=== PATIENT | female | born 1965 | race Caucasian/White ===

== ENCOUNTER → 2018-05-10 14:01 | Outpatient (CLI) | payer OTHER, MEDICAID, SELFPAY ==
--- NOTE | 2018-05-10 16:00 | PM.TREADMILL ---
Cardiac Stress Test Report Referral & Results Date Patient Seen: 05/10/18 Time Patient Seen: 16:00 Indication: Edema Rest ECG: Unremarkable Procedure Note: Today following both written and verbal informed consent, the patient was exercised according to a standard William protocol. The patient exercised for a total of 6 min 40 sec achieving a maximum heart rate of 128. Patient's maximum systolic blood pressure was 154. This was an estimated 7.0 MET's. There are no ST-T segment changes Normal heart rate blood pressure response the patient did failed meet the heart rate target Functional aerobic impairment rated-10% sedentary scale or better than average Impression: No evidence of ischemia. Better than average exercise capacity. Somewhat blunted heart rate response. Please note: Actual ECG tracings can be found in the PACS system.
== END ==
PROVIDERS: PCP Physician Assistant; Visit Provider Physician Assistant
DX: R60.0 Localized edema (principal)
CPT/HCPCS: 93016; 93017; 93018

== ENCOUNTER → 2018-09-14 10:42 | Outpatient (CLI) | payer OTHER, MEDICAID, SELFPAY ==
--- NOTE | 2018-09-14 | DI.MG.S_ITS ---
BILATERAL DIGITAL SCREENING MAMMOGRAM 3D/2D WITH CAD: 09/14/2018 CLINICAL: Routine screening. Comparison is made to exams dated: 07/28/2017 mammogram, 07/20/2016 mammogram - [facility], and 06/26/2014 mammogram - [facility]. The tissue of both breasts is predominantly fatty. Current study was also evaluated with a Computer Aided Detection (CAD) system. No significant masses, calcifications, or other findings are seen in either breast. There has been no significant interval change. IMPRESSION: NEGATIVE There is no mammographic evidence of malignancy. A 1 year screening mammogram is recommended. This exam was interpreted at Station ID: [id number]. NOTE: For mammograms, a report in lay terms will be sent to the patient. Approximately 15% of breast malignancies will not be visualized mammographically. In the management of a palpable breast mass, a negative mammogram must not discourage biopsy of a clinically suspicious lesion. Electronically Signed By: Shelley childers/bob:09/14/2018 16:40:12 letter sent: Normal Exam ACR BI-RADS Category 1: Negative [id number]
== END ==
PROVIDERS: PCP Family Medicine; Visit Provider Family Medicine
DX: Z12.31 Encounter for screening mammogram for malignant neoplasm of breast (principal)
CPT/HCPCS: 77063; 77067

== ENCOUNTER 2019-05-01 16:05 | Emergency (ER) | payer OTHER, MEDICAID, SELFPAY ==
[2019-05-01 16:07] VITALS: BP 123/79; PULSE 87; RESP 18; TEMP 37; O2SAT 99; BMI 29.2
--- NOTE | 2019-05-01 16:12 | DI.RAD.S_ITS ---
PROCEDURE: XR CHEST 2V INDICATIONS: Chest pain with breath TECHNIQUE: 2 views of the chest were acquired. COMPARISON: [facility], , CHEST 2 VIEW, 12/30/2011, 10:50. FINDINGS: Surgical changes and devices: Spine fixation hardware is stable.. Lungs and pleura: Lungs are clear. No pleural effusions or pneumothorax. Mediastinum: Mediastinal contours are normal. Heart size is normal. Bones and chest wall: No suspicious bony abnormalities. Soft tissues appear unremarkable. IMPRESSION: No acute cardiopulmonary disease process. Dictated by: Negrita Velázquez MD, PhD on 05/01/2019 at 16:50 Approved by: Negrita Velázquez MD, PhD on 05/01/2019 at 16:51
[2019-05-01 17:13] VITALS: BP 125/77; PULSE 72; RESP 19; O2SAT 96
--- NOTE | 2019-05-01 18:13 | ED.CHESTPAIN ---
HPI - Chest Pain General Chief Complaint: Chest Pain Stated Complaint: SHORT PAINS UNDER RIBS BREATHING COLD Time Seen by Provider: 05/01/19 18:06 Source: patient and family Mode of arrival: ambulatory Limitations: no limitations History of Present Illness HPI narrative: 54-year-old female non smoker with the history of HIV presents with the chief complaint of sharp and stabbing right anterior chest pain which is worse with palpation, moving and deep breath. She has had no fever chills and denies any shortness of breath. She is not dizzy nor weak or lightheaded. Her viral load is undetectable and CD4 counts have been normal. She was recently seen by her provider in had an ultrasound of her right upper quadrant given this pain which showed normal gallbladder and liver but saw a possible pleural effusion. Patient was sent here for further evaluation. MD complaint: chest pain Onset (ago): day(s) Duration: intermittent Pain location: right chest Severity: mild Quality: sharp Pain radiation: none Relieving factors: rest Exacerbating factors: inspiration, palpation and movement Treatments prior to arrival chest pain: none Related Data Home Medications Medication Instructions Recorded Confirmed acyclovir [Zovirax] 400 mg PO BID #0 12/10/12 05/01/19 loratadine 10 mg PO DAILY #0 12/10/12 05/01/19 atorvastatin [Lipitor] 20 mg PO DAILY 05/01/19 05/01/19 diclofenac sodium 1 applic TOPICAL DIRECTED 05/01/19 05/01/19 dolutegravir [Tivicay] 50 mg PO QPM 05/01/19 05/01/19 emtricitabine-tenofovir alafen 1 tab PO QPM 05/01/19 05/01/19 [Descovy] fluoxetine 20 mg PO DAILY 05/01/19 05/01/19 fluticasone propionate [Flonase 1 spray INTRANASAL DAILY 05/01/19 05/01/19 Allergy Relief] trazodone 25 mg PO BEDTIME 05/01/19 05/01/19 Allergies Allergy/AdvReac Type Severity Reaction Status Date / Time codeine [CODEINE] Allergy Severe ANAPHYLAXIS, Verified 05/01/19 16:07 VOMITING Review of Systems Constitutional Denies chills, Denies fever(s), Denies lethargy and Denies weakness Eyes Denies change in vision, Denies eye discharge, Denies irritation and Denies loss of vision ENT Ears, Nose, Mouth, and Throat: Denies change in voice, Denies neck pain and Denies sore throat Cardiovascular Reports chest pain, Denies irregular heart rhythm, Denies lightheadedness, Denies palpitations, Denies dyspnea, Denies dyspnea on exertion and Denies orthopnea Respiratory Denies cough, Denies dyspnea, Denies dyspnea on exertion and Denies wheezing Gastrointestinal Gastrointestinal: Denies abdominal pain, Denies change in bowel habits, Denies diarrhea, Denies nausea and Denies vomiting Genitourinary Denies hematuria, Denies flank pain, Denies urinary incontinence and Denies urinary urgency Musculoskeletal Denies neck pain Integumentary/Breasts Denies pruritus, Denies erythema, Denies rash and Denies wounds Neurologic Denies confusion, Denies loss of vision and Denies weakness Psychiatric Denies anxiety, Denies confusion, Denies depression, Denies homicidal ideation and Denies suicidal ideation Endocrine Denies palpitations Hematologic/Lymphatic Denies easy bruising Allergic/Immunologic Denies wheezing [facility] Social History Smoking Status: Never smoker Social History Smoking Status: Never smoker Exam Narrative Exam Narrative: GENERAL: 54-year-old female appears stated age, well appearing and in no obvious distress HEAD: Atraumatic. Normocephalic. No temporal or scalp tenderness. EYES: Pupils equal round and reactive. Extraocular motions intact. No scleral icterus. No injection or drainage. ENT: Nose without bleeding, purulent drainage or septal hematoma. Throat without erythema, tonsillar hypertrophy or exudate. Uvula midline. Airway patent. NECK: Trachea midline. No JVD or lymphadenopathy. Supple, nontender, no meningeal signs. CARDIOVASCULAR: Regular rate and rhythm without murmurs, gallops, or rubs. Reproducible sharp and stabbing right rib pain RESPIRATORY: Clear to auscultation. Breath sounds equal bilaterally. No wheezes, rales, or rhonchi. GASTROINTESTINAL: Abdomen soft, non-tender, nondistended. No hepato-splenomegaly, or palpable masses. No guarding. EXTREMITIES: No clubbing, cyanosis, or edema. No joint tenderness, effusion, or edema noted. BACK: Nontender without deformity or crepitance. No flank tenderness. NEURO: AOx3. SKIN: No rash or erythema. Initial Vital Signs Initial Vital Signs: Vital Signs Temperature 98.6 F 05/01/19 16:07 Pulse Rate 87 05/01/19 16:07 Respiratory Rate 18 05/01/19 16:07 Blood Pressure 123/79 05/01/19 16:07 Pulse Oximetry 99 05/01/19 16:07 Scores HEART Score Heart Score history: Slightly Suspicious Heart Score EKG: Normal Heart Score Age: 45-64 years old Heart Score risk factors: 1-2 risk factors Heart Score troponin: < or = to normal limit Heart Score Total: 2 PERC Score Age greater than or equal to 50 years: Yes Heart rate greater than or equal to 100 bpm: No Room Air O2 Sat less than 95%: No Unilateral leg swelling: No Recent trauma or surgery: No Hemoptysis: No Prior PE or DVT: No Hormone Use: No Total PERC Score: 1 Wells' Criteria for PE Clinical signs and symptoms of DVT: No PE is #1 Dx or equally likely: No Heart rate > 100: No Immobilization at least 3 days or surg in previous 4 weeks: No History of PE or DVT: No Hemoptysis: No Malignancy w/Treatment within 6 months or palliative: No Wells' PE Score total: 0 Course Orders Ordered: Discontinued Medications Sodium Chloride (Normal Saline 0.9%) 1,000 mls @ 150 mls/hr IV CONT RYLAND Last Infusion: 05/01/19 20:16 Dose: 150 mls/hr Admin: 05/01/19 18:58 Dose: 150 mls/hr Vital Signs - 8 hr 05/01/19 16:07 05/01/19 17:13 Temperature 98.6 F Pulse Rate 87 72 Respiratory Rate 18 19 Blood Pressure 123/79 Blood Pressure [Left Arm] 125/77 Pulse Oximetry 99 96 MDM - Chest Pain Lab Data Result diagrams: 05/01/19 16:40 05/01/19 19:04 Lab Results 05/01/19 05/01/19 05/01/19 Range/Units 16:40 16:40 19:04 WBC 6.1 (4.5-11.0) X10^3/uL RBC 4.29 (4.0-5.2) X10^6/uL Hgb 15.0 (12.0-16.0) g/dL Hct 43.5 (36-46) % MCV 101.5 H (80-100) fL MCH 34.9 H (26-34) PG MCHC 34.4 (30-36) % RDW 12.1 (11.6-14.8) % Plt Count 260 (150-400) X10^3/uL Neut % (Auto) 61.9 (50-75) % Lymph % (Auto) 26.1 (25-40) % [place] % (Auto) 9.2 (3-14) % Eos % (Auto) 2.2 (2-4) % Baso % (Auto) 0.6 (0-2) % Neut # (Auto) 3700 (4104-6815) /uL Lymph # (Auto) 1600 (4529-7881) /uL [place] # (Auto) 600 (0-900) /uL Eos # (Auto) 100 (0-450) /uL Baso # (Auto) 0 (0-100) /uL D-Dimer < 200 (<230) ng/mL Sodium 137 (137-145) mmol/L Potassium 4.0 (3.4-5.1) mmol/L Chloride 105 (98-107) mmol/L Carbon Dioxide 24 (22-32) mmol/L BUN 20 H (7-17) mg/dL Creatinine 1.40 H (0.52-1.04) mg/dL Estimated GFR 38.9 L (>60) mL/min BUN/Creatinine Ratio 14.3 (6-22) Glucose 91 (70-100) mg/dL Calcium 9.3 (8.4-10.2) mg/dL Total Bilirubin 0.6 (0.2-1.3) mg/dL AST 34 (14-36) IU/L ALT 40 (9-52) IU/L Alkaline Phosphatase 90 (38-126) U/L Total Creatine Kinase 158 H (30-135) U/L CK-MB (CK-2) 2.11 (<2.37) ng/mL CK-MB (CK-2) Rel Index 1.3 L (1.5-5.0) % Troponin I < 0.012 (0.01-0.034) ng/mL Total Protein 7.1 (6.3-8.2) g/dL Albumin 4.1 (3.5-5.0) g/dL Globulin 3.0 (1.7-4.1) g/dL Albumin/Globulin Ratio 1.4 (1.0-2.8) Lipase 229 (23-300) U/L Imaging Data Chest x-ray: Radiologist's impression: [address] [address] XRay Report Signed Patient: Mikaela Thompson MMR#: [id number] : 1965Acct:[id number] Age/Sex: 54 / FDate of Service: 05/01/19 Loc: ED Accession Number: [id number] Procedure: XR chest 2V Ordering Provider: Regi Peña D.O. PROCEDURE: XR CHEST 2V INDICATIONS: Chest pain with breath TECHNIQUE: 2 views of the chest were acquired. COMPARISON: [facility], [place], CHEST 2 VIEW, 12/30/2011, 10:50. FINDINGS: Surgical changes and devices: Spine fixation hardware is stable.. Lungs and pleura: Lungs are clear. No pleural effusions or pneumothorax. Mediastinum: Mediastinal contours are normal. Heart size is normal. Bones and chest wall: No suspicious bony abnormalities. Soft tissues appear unremarkable. IMPRESSION: No acute cardiopulmonary disease process. Dictated by: Negrita Velázquez MD, PhD on 05/01/2019 at 16:50 Approved by: Negrita Velázquez MD, PhD on 05/01/2019 at 16:51 [facility] Narrative Medical decision making narrative: Multiple etiologies of the patient's Arb and stabbing, reproducible right-sided chest pain considered including gallbladder, liver or pancreatic disease but thought less likely given lack of findings on recent ultrasound or labs. Cardiac disease considered less likely given lack of classic ischemic findings, cardiac equivalents complaints, nonischemic EKG and normal troponin. Heart score is two. Discomfort has been present for quite a few days. Extensive discussion at the bedside with patient and her friend regarding lab findings and imaging as well as how her history and physical exam fit this. Return precautions given and understanding was evidenced by her ability to verbalize them back to me. Patient questions answered to her apparent satisfaction Discharge Plan Departure Patient Disposition: Home Clinical Impression: Atypical chest pain Discharge Date/Time: 05/01/19 20:18 Interventions: ED Discharge Assessment Last Done: 05/01/19 20:17 Instructions: DI for Atypical Chest Pain Activity Restrictions/Additional Instructions: *You have been diagnosed with [ atypical chest pain ] *What to do: *Take medications as directed *Follow up with your primary care provider in 2-3 days, call for an appointment. Let them know you were seen in the Emergency Department and that we ask that you be seen in follow up *Return to ER if you should have any new, worsening or concerning symptoms Prescriptions: No Action loratadine 10 MG tablet 10 mg PO DAILY Qty: 0 RF: 0 acyclovir [Zovirax] 400 MG tablet 400 mg PO BID Qty: 0 RF: 0 fluoxetine 10 mg capsule 20 mg PO DAILY RF: 0 Tivicay 50 mg tablet 50 mg PO QPM RF: 0 Descovy 200-25 mg tablet 1 tab PO QPM RF: 0 diclofenac sodium 1 % gel 1 applic topical DIRECTED RF: 0 atorvastatin [Lipitor] 20 MG tablet 20 mg PO DAILY RF: 0 trazodone 50 MG tablet 25 mg PO BEDTIME RF: 0 fluticasone propionate [Flonase Allergy Relief] 9.9 ML spray,suspension 1 spray Intranasal DAILY RF: 0 Referrals: Elmer Ravi MD [Primary Care Provider] -
[2019-05-01 18:44] LABS: Add Manual Diff / Slide Review NO; Basophils Absolute Auto 0 /uL (0-100); Basophils Percent Auto 0.6 % (0-2); Eosinophils Absolute Auto 100 /uL (0-450); Eosinophils Percent Auto 2.2 % (2-4); Hematocrit 43.5 % (36-46); Lymphocytes Absolute Auto 1600 /uL (1100-4500); Lymphocytes Percent Auto 26.1 % (25-40); Mean Corpuscular HGB Conc 34.4 % (30-36); Mean Corpuscular Hemoglobin 34.9 PG (26-34); Mean Corpuscular Volume 101.5 fL (80-100); Monocytes Absolute Auto 600 /uL (0-900); Monocytes Percent Auto 9.2 % (3-14); Neutrophils Absolute Auto 3700 /uL (1500-7000); Neutrophils Percent Auto 61.9 % (50-75); Platelet Count 260 X10^3/uL (150-400); Red Blood Cell Count 4.29 X10^6/uL (4.0-5.2); Red Cell Distribution Width 12.1 % (11.6-14.8); White Blood Cell Count 6.1 X10^3/uL (4.5-11.0)
[2019-05-01 18:58] LABS: D Dimer < 200 ng/mL (<230)
[2019-05-01] MEDS: SODIUM CHLORIDE 0.9% 1,000 ML 150 ML IV (18:58)
[2019-05-01 19:28] LABS: Alanine Aminotransferase 40 IU/L (9-52); Albumin 4.1 g/dL (3.5-5.0); Albumin Globulin Ratio 1.4 (1.0-2.8); Alkaline Phosphatase 90 U/L (38-126); Aspartate Aminotransferase 34 IU/L (14-36); BUN Creatinine Ratio 14.3 (6-22); Bilirubin Total 0.6 mg/dL (0.2-1.3); Blood Urea Nitrogen 20 mg/dL (7-17); Calcium 9.3 mg/dL (8.4-10.2); Carbon Dioxide 24 mmol/L (22-32); Chloride 105 mmol/L (98-107); Creatine Kinase 158 U/L (30-135); Estimated Glomerular Filt Rate 38.9 mL/min (>60); Glucose 91 mg/dL (70-100); HEMOLYSIS 24 (0-50); Lipase 229 U/L (23-300); Sodium 137 mmol/L (137-145); Total Protein 7.1 g/dL (6.3-8.2)
[2019-05-01 19:36] LABS: Troponin I < 0.012 ng/mL (0.01-0.034)
[2019-05-01 19:49] LABS: CKMB % Relative Index 1.3 % (1.5-5.0); Creatine Kinase MB 2.11 ng/mL (<2.37)
[2019-05-01 19:53] VITALS: BP 130/79; PULSE 67; RESP 12; O2SAT 97
[2019-05-01 20:17] VITALS: BP 125/70; PULSE 69; RESP 12; O2SAT 98
--- NOTE | 2019-05-02 04:27 | ED_ITS ---
HPI - Chest Pain General Chief Complaint: Chest Pain Stated Complaint: SHORT PAINS UNDER RIBS BREATHING COLD Time Seen by Provider: 05/01/19 18:06 Source: patient and family Mode of arrival: ambulatory Limitations: no limitations History of Present Illness HPI narrative: 54-year-old female non smoker with the history of HIV presents with the chief complaint of sharp and stabbing right anterior chest pain which is worse with palpation, moving and deep breath. She has had no fever chills and denies any shortness of breath. She is not dizzy nor weak or lightheaded. Her viral load is undetectable and CD4 counts have been normal. She was recently seen by her provider in had an ultrasound of her right upper quadrant given this pain which showed normal gallbladder and liver but saw a possible pleural effusion. Patient was sent here for further evaluation. MD complaint: chest pain Onset (ago): day(s) Duration: intermittent Pain location: right chest Severity: mild Quality: sharp Pain radiation: none Relieving factors: rest Exacerbating factors: inspiration, palpation and movement Treatments prior to arrival chest pain: none Related Data Home Medications Medication Instructions Recorded Confirmed acyclovir [Zovirax] 400 mg PO BID #0 12/10/12 05/01/19 loratadine 10 mg PO DAILY #0 12/10/12 05/01/19 atorvastatin [Lipitor] 20 mg PO DAILY 05/01/19 05/01/19 diclofenac sodium 1 applic TOPICAL DIRECTED 05/01/19 05/01/19 dolutegravir [Tivicay] 50 mg PO QPM 05/01/19 05/01/19 emtricitabine-tenofovir alafen 1 tab PO QPM 05/01/19 05/01/19 [Descovy] fluoxetine 20 mg PO DAILY 05/01/19 05/01/19 fluticasone propionate [Flonase 1 spray INTRANASAL DAILY 05/01/19 05/01/19 Allergy Relief] trazodone 25 mg PO BEDTIME 05/01/19 05/01/19 Allergies Allergy/AdvReac Type Severity Reaction Status Date / Time codeine [CODEINE] Allergy Severe ANAPHYLAXIS, Verified 05/01/19 16:07 VOMITING Review of Systems Constitutional Denies chills, Denies fever(s), Denies lethargy and Denies weakness Eyes Denies change in vision, Denies eye discharge, Denies irritation and Denies loss of vision ENT Ears, Nose, Mouth, and Throat: Denies change in voice, Denies neck pain and Denies sore throat Cardiovascular Reports chest pain, Denies irregular heart rhythm, Denies lightheadedness, Denies palpitations, Denies dyspnea, Denies dyspnea on exertion and Denies orthopnea Respiratory Denies cough, Denies dyspnea, Denies dyspnea on exertion and Denies wheezing Gastrointestinal Gastrointestinal: Denies abdominal pain, Denies change in bowel habits, Denies diarrhea, Denies nausea and Denies vomiting Genitourinary Denies hematuria, Denies flank pain, Denies urinary incontinence and Denies urinary urgency Musculoskeletal Denies neck pain Integumentary/Breasts Denies pruritus, Denies erythema, Denies rash and Denies wounds Neurologic Denies confusion, Denies loss of vision and Denies weakness Psychiatric Denies anxiety, Denies confusion, Denies depression, Denies homicidal ideation and Denies suicidal ideation Endocrine Denies palpitations Hematologic/Lymphatic Denies easy bruising Allergic/Immunologic Denies wheezing [facility] Social History Smoking Status: Never smoker Social History Smoking Status: Never smoker Exam Narrative Exam Narrative: GENERAL: 54-year-old female appears stated age, well appearing and in no obvious distress HEAD: Atraumatic. Normocephalic. No temporal or scalp tenderness. EYES: Pupils equal round and reactive. Extraocular motions intact. No scleral icterus. No injection or drainage. ENT: Nose without bleeding, purulent drainage or septal hematoma. Throat without erythema, tonsillar hypertrophy or exudate. Uvula midline. Airway patent. NECK: Trachea midline. No JVD or lymphadenopathy. Supple, nontender, no meningeal signs. CARDIOVASCULAR: Regular rate and rhythm without murmurs, gallops, or rubs. Reproducible sharp and stabbing right rib pain RESPIRATORY: Clear to auscultation. Breath sounds equal bilaterally. No wheezes, rales, or rhonchi. GASTROINTESTINAL: Abdomen soft, non-tender, nondistended. No hepato- splenomegaly, or palpable masses. No guarding. EXTREMITIES: No clubbing, cyanosis, or edema. No joint tenderness, effusion, or edema noted. BACK: Nontender without deformity or crepitance. No flank tenderness. NEURO: AOx3. SKIN: No rash or erythema. Initial Vital Signs Initial Vital Signs: Vital Signs Temperature 98.6 F 05/01/19 16:07 Pulse Rate 87 05/01/19 16:07 Respiratory Rate 18 05/01/19 16:07 Blood Pressure 123/79 05/01/19 16:07 Pulse Oximetry 99 05/01/19 16:07 Scores HEART Score Heart Score history: Slightly Suspicious Heart Score EKG: Normal Heart Score Age: 45-64 years old Heart Score risk factors: 1-2 risk factors Heart Score troponin: < or = to normal limit Heart Score Total: 2 PERC Score Age greater than or equal to 50 years: Yes Heart rate greater than or equal to 100 bpm: No Room Air O2 Sat less than 95%: No Unilateral leg swelling: No Recent trauma or surgery: No Hemoptysis: No Prior PE or DVT: No Hormone Use: No Total PERC Score: 1 Wells' Criteria for PE Clinical signs and symptoms of DVT: No PE is #1 Dx or equally likely: No Heart rate > 100: No Immobilization at least 3 days or surg in previous 4 weeks: No History of PE or DVT: No Hemoptysis: No Malignancy w/Treatment within 6 months or palliative: No Wells' PE Score total: 0 Course Orders Ordered: Discontinued Medications Sodium Chloride (Normal Saline 0.9%) 1,000 mls @ 150 mls/hr IV CONT RYLAND Last Infusion: 05/01/19 20:16 Dose: 150 mls/hr Admin: 05/01/19 18:58 Dose: 150 mls/hr Vital Signs - 8 hr 05/01/19 16:07 05/01/19 17:13 Temperature 98.6 F Pulse Rate 87 72 Respiratory Rate 18 19 Blood Pressure 123/79 Blood Pressure [Left Arm] 125/77 Pulse Oximetry 99 96 MDM - Chest Pain Lab Data Result diagrams: 05/01/19 16:40 05/01/19 19:04 Lab Results 05/01/19 05/01/19 05/01/19 Range/Units 16:40 16:40 19:04 WBC 6.1 (4.5-11.0) X10^3/uL RBC 4.29 (4.0-5.2) X10^6/uL Hgb 15.0 (12.0-16.0) g/dL Hct 43.5 (36-46) % MCV 101.5 H (80-100) fL MCH 34.9 H (26-34) PG MCHC 34.4 (30-36) % RDW 12.1 (11.6-14.8) % Plt Count 260 (150-400) X10^3/uL Neut % (Auto) 61.9 (50-75) % Lymph % (Auto) 26.1 (25-40) % [place] % (Auto) 9.2 (3-14) % Eos % (Auto) 2.2 (2-4) % Baso % (Auto) 0.6 (0-2) % Neut # (Auto) 3700 (4087-3179) /uL Lymph # (Auto) 1600 (0934-5231) /uL [place] # (Auto) 600 (0-900) /uL Eos # (Auto) 100 (0-450) /uL Baso # (Auto) 0 (0-100) /uL D-Dimer < 200 (<230) ng/mL Sodium 137 (137-145) mmol/L Potassium 4.0 (3.4-5.1) mmol/L Chloride 105 (98-107) mmol/L Carbon Dioxide 24 (22-32) mmol/L BUN 20 H (7-17) mg/dL Creatinine 1.40 H (0.52-1.04) mg/dL Estimated GFR 38.9 L (>60) mL/min BUN/Creatinine Ratio 14.3 (6-22) Glucose 91 (70-100) mg/dL Calcium 9.3 (8.4-10.2) mg/dL Total Bilirubin 0.6 (0.2-1.3) mg/dL AST 34 (14-36) IU/L ALT 40 (9-52) IU/L Alkaline Phosphatase 90 (38-126) U/L Total Creatine Kinase 158 H (30-135) U/L CK-MB (CK-2) 2.11 (<2.37) ng/mL CK-MB (CK-2) Rel Index 1.3 L (1.5-5.0) % Troponin I < 0.012 (0.01-0.034) ng/mL Total Protein 7.1 (6.3-8.2) g/dL Albumin 4.1 (3.5-5.0) g/dL Globulin 3.0 (1.7-4.1) g/dL Albumin/Globulin Ratio 1.4 (1.0-2.8) Lipase 229 (23-300) U/L Imaging Data Chest x-ray: Radiologist's impression: [address] [address] XRay Report Signed Patient: Mikaela Thompson MMR#: [id number] : 1965Acct:[id number] Age/Sex: 54 / FDate of Service: 05/01/19 Loc: ED Accession Number: [id number] Procedure: XR chest 2V Ordering Provider: Regi Peña D.O. PROCEDURE: XR CHEST 2V INDICATIONS: Chest pain with breath TECHNIQUE: 2 views of the chest were acquired. COMPARISON: [facility], [place], CHEST 2 VIEW, 12/30/2011, 10:50. FINDINGS: Surgical changes and devices: Spine fixation hardware is stable.. Lungs and pleura: Lungs are clear. No pleural effusions or pneumothorax. Mediastinum: Mediastinal contours are normal. Heart size is normal. Bones and chest wall: No suspicious bony abnormalities. Soft tissues appear unremarkable. IMPRESSION: No acute cardiopulmonary disease process. Dictated by: Negrita Velázquez MD, PhD on 05/01/2019 at 16:50 Approved by: Negrita Velázquez MD, PhD on 05/01/2019 at 16:51 [facility] Narrative Medical decision making narrative: Multiple etiologies of the patient's Arb and stabbing, reproducible right-sided chest pain considered including gallbladder, liver or pancreatic disease but thought less likely given lack of findings on recent ultrasound or labs. Cardiac disease considered less likely given lack of classic ischemic findings, cardiac equivalents complaints, nonischemic EKG and normal troponin. Heart score is two. Discomfort has been present for quite a few days. Extensive discussion at the bedside with patient and her friend regarding lab findings and imaging as well as how her history and physical exam fit this. Return precautions given and understanding was evidenced by her ability to verbalize them back to me. Patient questions answered to her apparent satisfaction Discharge Plan Departure Patient Disposition: Home Clinical Impression: Atypical chest pain Discharge Date/Time: 05/01/19 20:18 Interventions: ED Discharge Assessment Last Done: 05/01/19 20:17 Instructions: DI for Atypical Chest Pain Activity Restrictions/Additional Instructions: *You have been diagnosed with [ atypical chest pain ] *What to do: *Take medications as directed *Follow up with your primary care provider in 2-3 days, call for an appointment. Let them know you were seen in the Emergency Department and that we ask that you be seen in follow up *Return to ER if you should have any new, worsening or concerning symptoms Prescriptions: No Action loratadine 10 MG tablet 10 mg PO DAILY Qty: 0 RF: 0 acyclovir [Zovirax] 400 MG tablet 400 mg PO BID Qty: 0 RF: 0 fluoxetine 10 mg capsule 20 mg PO DAILY RF: 0 Tivicay 50 mg tablet 50 mg PO QPM RF: 0 Descovy 200-25 mg tablet 1 tab PO QPM RF: 0 diclofenac sodium 1 % gel 1 applic topical DIRECTED RF: 0 atorvastatin [Lipitor] 20 MG tablet 20 mg PO DAILY RF: 0 trazodone 50 MG tablet 25 mg PO BEDTIME RF: 0 fluticasone propionate [Flonase Allergy Relief] 9.9 ML spray,suspension 1 spray Intranasal DAILY RF: 0 Referrals: Elmer Ravi MD [Primary Care Provider] -
== END 2019-05-01 20:18 | disposition home or self-care (01) ==
PROVIDERS: Emergency Provider Emergency Medicine; PCP Family Medicine
DX: R07.89 Other chest pain (principal)
CPT/HCPCS: 36415; 36591; 71046; 80053; 82550; 82553; 83690; 84484; 85025; 85379; 93005; 96360; 99283; 99285

== ENCOUNTER → 2020-05-08 11:19 | Outpatient (CLI) | payer OTHER, MEDICAID, SELFPAY ==
--- NOTE | 2020-05-08 | DI.NM.S_ITS ---
PROCEDURE: NM HIDA WITH CCK PHARMACEUTICAL: 5.1 mCi Tc-99m mebrofenin IV; 0.7 mcg CCK IV. INDICATIONS: Right upper quadrant pain TECHNIQUE: Following intravenous administration of Tc-99m mebrofenin, sequential anterior abdominal images were obtained. To evaluate the contractile response of the gallbladder in response to Cholecystokinin (CCK), sincalide (0.02 ?g/kg) was administered by slow intravenous infusion approximately 60 minutes after the administration of the radiopharmaceutical. Sequential imaging was continued for 30 minutes after the start of CCK infusion. Gallbladder ejection fraction was calculated. COMPARISON: None. FINDINGS: Biliary scan: There is normal tracer uptake and excretion by the liver. There is normal visualization of the intrahepatic ducts, common bile duct, and gallbladder. There is normal tracer transit into the duodenum. CCK stimulation: There is normal contractile response of the gallbladder to CCK infusion. The calculated gallbladder ejection fraction is 70% ; normal values are above 35%. It has been shown that any patient abdominal pain after CCK administration is related to the rate of CCK injection, rather than to any underlying gallbladder disease (Clinical Nuclear Medicine 2012; 37: 63-70. Journal of Nuclear Medicine 2014; 55: 1-9). IMPRESSION: 1. Normal filling of gallbladder. No evidence for acute cholecystitis. 2. Normal contractile response of gallbladder to CCK stimulation. Dictated by: Pam Hoyos M.D. on 05/08/2020 at 14:03 Approved by: Pam Hoyos M.D. on 05/08/2020 at 14:05
== END ==
PROVIDERS: PCP Family Medicine; Referring Provider Internal Medicine; Visit Provider Internal Medicine
DX: R10.11 Right upper quadrant pain (principal)
CPT/HCPCS: 78227; A9537; J2805

== ENCOUNTER → 2020-10-29 08:54 | Outpatient (CLI) | payer OTHER, MEDICAID, SELFPAY ==
[2020-10-29 09:14] LABS: Bacteria Urine None Seen; RBC Urine None Seen (0-5/HPF)
[2020-10-29 10:13] LABS: Appearance Urine UA CLEAR; Bilirubin Urine UA NEGATIVE (NEGATIVE); Color Urine UA YELLOW; Glucose Urine UA NEGATIVE (Negative); Ketones Urine UA NEGATIVE (NEGATIVE); Leukocyte Esterase Urine UA TRACE (NEGATIVE); Nitrite Urine UA NEGATIVE (Negative); Occult Blood Urine UA NEGATIVE (Negative); Protein Urine UA NEGATIVE (Negative); Specific Gravity Urine UA 1.025 (1.000-1.035); Urobilinogen Urine UA 0.2 E.U./dL (0.2)
[2020-10-29 10:20] LABS: Squamous Epithelial Cell Urine 1-5 /HPF (0-5/HPF); WBC Urine 1-5/HPF (0-5/HPF)
[2020-10-29 10:35] LABS: Alanine Aminotransferase 73 IU/L (<35); Albumin 4.4 g/dL (3.5-5.0); Albumin Globulin Ratio 1.5 (1.0-2.8); Alkaline Phosphatase 91 U/L (38-126); Aspartate Aminotransferase 50 IU/L (14-36); BUN Creatinine Ratio 19.6 (6-22); Bilirubin Total 0.5 mg/dL (0.2-1.3); Blood Urea Nitrogen 22 mg/dL (7-17); Calcium 9.5 mg/dL (8.4-10.2); Carbon Dioxide 32 mmol/L (22-32); Chloride 102 mmol/L (98-107); Estimated Glomerular Filt Rate 50.1 mL/min (>60); Glucose 98 mg/dL (70-100); HEMOLYSIS < 15 (0-50); Phosphorous 3.1 mg/dL (2.5-4.5); Potassium 4.4 mmol/L (3.4-5.1); Sodium 138 mmol/L (137-145); Total Protein 7.4 g/dL (6.3-8.2)
[2020-10-29 11:12] LABS: Thyroid Stimulating Hormone 0.114 uIU/mL (0.47-4.68)
[2020-10-30 12:08] LABS: Absolute CD 4 Helper 489 /uL (359-1519); Eosinophils 1 % (Not Estab.); Eosinophils (Absolute) 0.1 x10E3/uL (0.0-0.4); Hemacrit 46.4 % (34.0-46.6); Hemoglobin 15.4 g/dL (11.1-15.9); Immature Granulocytes 0 % (Not Estab.); Lymphocytes 30 % (Not Estab.); Lymphocytes (Absolute) 1.4 x10E3/uL (0.7-3.1); MCHC 33.2 g/dL (31.5-35.7); MCV 106 fL (79-97); Monocytes 10 % (Not Estab.); Monocytes (Absolute) 0.5 x10E3/uL (0.1-0.9); Neutrophils 58 % (Not Estab.); Neutrophils (Absolute) 2.6 x10E3/uL (1.4-7.0); Percent CD 4 Pos Lymph 34.9 % (30.8-58.5); Platelets 232 x10E3/uL (150-450); RDW 12.3 % (11.7-15.4); White Blood Cells 4.6 x10E3/uL (3.4-10.8)
[2020-11-01 23:07] LABS: HIV-1 RNA by PCR <40 copies/mL (.)
== END ==
PROVIDERS: PCP Family Medicine; Referring Provider Family Medicine; Visit Provider Internal Medicine
DX: Z21 Asymptomatic human immunodeficiency virus [HIV] infection status (principal); R68.89 Other general symptoms and signs; K59.00 Constipation, unspecified; L85.3 Xerosis cutis; K82.8 Other specified diseases of gallbladder; R10.11 Right upper quadrant pain; Z79.899 Other long term (current) drug therapy
CPT/HCPCS: 36415; 80053; 81001; 84100; 84443; 86361; 87536

== ENCOUNTER → 2021-01-06 11:01 | Outpatient (CLI) | payer OTHER, MEDICAID, SELFPAY ==
[2021-01-06 20:30] LABS: Add Manual Diff / Slide Review NO; Basophils Absolute Auto 0 /uL (0-100); Basophils Percent Auto 0.7 % (0-2); Eosinophils Absolute Auto 100 /uL (0-450); Eosinophils Percent Auto 1.3 % (2-4); Hematocrit 45.5 % (36-46); Hemoglobin 15.6 g/dL (12.0-16.0); Lymphocytes Absolute Auto 1500 /uL (1100-4500); Lymphocytes Percent Auto 28.6 % (25-40); Mean Corpuscular HGB Conc 34.2 % (30-36); Mean Corpuscular Hemoglobin 35.2 PG (26-34); Mean Corpuscular Volume 102.9 fL (80-100); Monocytes Absolute Auto 400 /uL (0-900); Monocytes Percent Auto 8.3 % (3-14); Neutrophils Absolute Auto 3200 /uL (1500-7000); Neutrophils Percent Auto 61.1 % (50-75); Platelet Count 244 X10^3/uL (150-400); Red Blood Cell Count 4.42 X10^6/uL (4.0-5.2); Red Cell Distribution Width 11.8 % (11.6-14.8); White Blood Cell Count 5.3 X10^3/uL (4.5-11.0)
[2021-01-06 20:40] LABS: Alanine Aminotransferase 41 IU/L (<35); Albumin 4.2 g/dL (3.5-5.0); Albumin Globulin Ratio 1.4 (1.0-2.8); Alkaline Phosphatase 102 U/L (38-126); Aspartate Aminotransferase 38 IU/L (14-36); BUN Creatinine Ratio 19.8 (6-22); Bilirubin Total 0.5 mg/dL (0.2-1.3); Blood Urea Nitrogen 24 mg/dL (7-17); Calcium 10.2 mg/dL (8.4-10.2); Carbon Dioxide 22 mmol/L (22-32); Chloride 104 mmol/L (98-107); Cholesterol 176 mg/dL (140-199); Estimated Glomerular Filt Rate 45.9 mL/min (>60); Glucose 121 mg/dL (70-100); HDL Cholesterol 43 mg/dL (40-60); HEMOLYSIS < 15 (0-50); LDL Cholesterol Calculated 79 mg/dL (<100); Potassium 4.5 mmol/L (3.4-5.1); Sodium 136 mmol/L (137-145); Total Protein 7.2 g/dL (6.3-8.2); Triglycerides 268 mg/dL (35-150)
[2021-01-06 20:42] LABS: Hemoglobin A1C% w Est Avg Glu 5.3 % (4.0-6.0)
[2021-01-06 20:47] LABS: Total Iron Binding Capacity 321 ug/dL (265-497)
[2021-01-06 20:52] LABS: Erythrocyte Sedimentation Rate 1 MM/HR (0-20)
[2021-01-06 20:56] LABS: Free T3, Triiodothyronine Free 3.16 pg/mL (2.77-5.27); Free T4, Direct Thyroxine 1.07 ng/dL (0.78-2.19)
[2021-01-06 21:09] LABS: Thyroid Stimulating Hormone 0.576 uIU/mL (0.47-4.68)
[2021-01-06 21:13] LABS: Ferritin 56 ng/mL (11-264)
[2021-01-06 21:44] LABS: Folate > 20.0 ng/mL (2.76-20.0); Vitamin B12 565 pg/mL (239-931)
[2021-01-07 04:27] LABS: High Sensitivity CRP - Cardiac < 0.3 mg/L (1.0-3.0)
[2021-01-07 14:43] LABS: HEMOLYSIS < 15 (0-50); Iron 131 ug/dL (37-170); Percent Iron Saturation 41 % (15-50)
[2021-01-07 14:50] LABS: Transferrin 287 mg/dL (206-381)
[2021-01-08 04:45] LABS: Alpha 1 Anti Trypsin 125 mg/dL (101-187); Ceruloplasmin 22.1 mg/dL (19.0-39.0); Homocysteine 12.4 umol/L (0.0-14.5)
[2021-01-08 05:37] LABS: Alpha Fetoprotein 3.1 ng/mL (0.0-8.3); Parathyroid Hormone Int 33 pg/mL (15-65)
[2021-01-09 00:44] LABS: Free Kappa Lt Chains, Serum 24.9 mg/L (3.3-19.4); Free Lambda Lt Chains,Serum 19.8 mg/L (5.7-26.3)
[2021-01-09 13:14] LABS: Alpha 1 Globulin 0.2 g/dL (0.0-0.4); Alpha 2 Globulin 0.6 g/dL (0.4-1.0); Gamma Globulin 1.1 g/dL (0.4-1.8)
[2021-01-09 13:14] LABS: Immunoglobulin A, Serum 184 mg/dL (87-352); Immunoglobulin G,Serum 1035 mg/dL (586-1602); Immunoglobulin M, Serum 100 mg/dL (26-217)
[2021-01-09 15:08] LABS: ANA Screen, IFA Negative (.)
[2021-01-10 03:17] LABS: Methylmalonic Acid,Serum 363 nmol/L (0-378)
[2021-01-11 16:38] LABS: Anti Mitochondrial ABY IGG <20.0 Units (0.0-20.0)
== END ==
PROVIDERS: PCP Family Medicine; Visit Provider Family Medicine
DX: E05.90 Thyrotoxicosis, unspecified without thyrotoxic crisis or storm (principal); E78.2 Mixed hyperlipidemia; N18.31 Chronic kidney disease, stage 3a
CPT/HCPCS: 80053; 80061; 81256; 82103; 82105; 82390; 82525; 82607; 82728; 82746; 82784; 83036; 83090; 83516; 83540; 83550; 83883; 83921; 83970; 84155; 84165; 84439; 84443; 84481; 85025; 85651; 86038; 86140; 86334

== ENCOUNTER → 2021-04-21 10:43 | Outpatient (CLI) | payer OTHER, MEDICAID, SELFPAY ==
[2021-04-21 19:16] LABS: Add Manual Diff / Slide Review NO; Basophils Absolute Auto 0 /uL (0-100); Basophils Percent Auto 0.7 % (0-2); Eosinophils Absolute Auto 100 /uL (0-450); Eosinophils Percent Auto 2.9 % (2-4); Hematocrit 46.1 % (36-46); Hemoglobin 15.8 g/dL (12.0-16.0); Lymphocytes Absolute Auto 1100 /uL (1100-4500); Lymphocytes Percent Auto 23.9 % (25-40); Mean Corpuscular HGB Conc 34.3 % (30-36); Mean Corpuscular Hemoglobin 35.1 PG (26-34); Mean Corpuscular Volume 102.2 fL (80-100); Monocytes Absolute Auto 400 /uL (0-900); Monocytes Percent Auto 8.2 % (3-14); Neutrophils Absolute Auto 3000 /uL (1500-7000); Neutrophils Percent Auto 64.3 % (50-75); Platelet Count 245 X10^3/uL (150-400); Red Blood Cell Count 4.51 X10^6/uL (4.0-5.2); Red Cell Distribution Width 11.7 % (11.6-14.8); White Blood Cell Count 4.7 X10^3/uL (4.5-11.0)
[2021-04-21 19:27] LABS: Appearance Urine UA CLEAR; Bilirubin Urine UA NEGATIVE (NEGATIVE); Color Urine UA YELLOW; Glucose Urine UA NEGATIVE (Negative); Ketones Urine UA NEGATIVE (NEGATIVE); Leukocyte Esterase Urine UA NEGATIVE (NEGATIVE); Nitrite Urine UA NEGATIVE (Negative); Occult Blood Urine UA NEGATIVE (Negative); Protein Urine UA NEGATIVE (Negative); Specific Gravity Urine UA 1.015 (1.000-1.035); Urobilinogen Urine UA 0.2 E.U./dL (0.2)
[2021-04-21 19:30] LABS: pH Urine UA 6.5 (4.5-8.0)
[2021-04-21 19:33] LABS: Alanine Aminotransferase 46 IU/L (<35); Albumin Globulin Ratio 1.4 (1.0-2.8); Alkaline Phosphatase 101 U/L (38-126); Aspartate Aminotransferase 37 IU/L (14-36); BUN Creatinine Ratio 15.2 (6-22); Bilirubin Total 0.7 mg/dL (0.2-1.3); Blood Urea Nitrogen 21 mg/dL (7-17); Calcium 9.7 mg/dL (8.4-10.2); Carbon Dioxide 27 mmol/L (22-32); Chloride 105 mmol/L (98-107); Cholesterol 191 mg/dL (140-199); Estimated Glomerular Filt Rate 39.3 mL/min (>60); Globulin 2.8 g/dL (1.7-4.1); Glucose 98 mg/dL (70-100); HDL Cholesterol 41 mg/dL (40-60); HEMOLYSIS < 15 (0-50); LDL Cholesterol Calculated 75 mg/dL (<100); Potassium 4.2 mmol/L (3.4-5.1); Sodium 140 mmol/L (137-145); Total Protein 6.8 g/dL (6.3-8.2); Triglycerides 376 mg/dL (35-150)
[2021-04-21 19:34] LABS: Bacteria Urine Occasional (0-1); RBC Urine 0-1/HPF (0-5/HPF); Squamous Epithelial Cell Urine 1-5 /HPF (0-5/HPF); Transitional Epi Cells Urine 1-5/HPF (0-5/HPF); WBC Urine 1-5/HPF (0-5/HPF)
[2021-04-23 20:36] LABS: Absolute CD 4 Helper 376 /uL (359-1519); Eosinophils 2 % (Not Estab.); Eosinophils (Absolute) 0.1 x10E3/uL (0.0-0.4); Hemacrit 42.5 % (34.0-46.6); Hemoglobin 14.4 g/dL (11.1-15.9); Immature Granulocytes 0 % (Not Estab.); Lymphocytes 24 % (Not Estab.); Lymphocytes (Absolute) 1.1 x10E3/uL (0.7-3.1); MCHC 33.9 g/dL (31.5-35.7); MCHC 34.6 pg (26.6-33.0); MCV 102 fL (79-97); Monocytes 9 % (Not Estab.); Monocytes (Absolute) 0.4 x10E3/uL (0.1-0.9); Neutrophils 64 % (Not Estab.); Percent CD 4 Pos Lymph 34.2 % (30.8-58.5); Platelets 235 x10E3/uL (150-450); RDW 11.7 % (11.7-15.4); Red Blood Cells 4.16 x10E6/uL (3.77-5.28); White Blood Cells 4.7 x10E3/uL (3.4-10.8)
[2021-05-05 20:36] LABS: HIV-1 RNA by PCR <40 copies/mL (.)
== END ==
PROVIDERS: PCP Internal Medicine; Visit Provider Internal Medicine
DX: B20 Human immunodeficiency virus [HIV] disease (principal); E78.49 Other hyperlipidemia; Z79.899 Other long term (current) drug therapy
CPT/HCPCS: 80053; 80061; 81001; 84100; 85025; 86361; 87536

== ENCOUNTER → 2021-10-07 09:07 | Outpatient (CLI) | payer OTHER, MEDICAID, SELFPAY ==
[2021-10-07 09:56] LABS: Appearance Urine UA CLEAR; Bilirubin Urine UA NEGATIVE (NEGATIVE); Color Urine UA YELLOW; Glucose Urine UA NEGATIVE (Negative); Ketones Urine UA NEGATIVE (NEGATIVE); Leukocyte Esterase Urine UA NEGATIVE (NEGATIVE); Nitrite Urine UA NEGATIVE (Negative); Occult Blood Urine UA TRACE-INTACT (Negative); Protein Urine UA NEGATIVE (Negative); Urobilinogen Urine UA 0.2 E.U./dL (0.2)
[2021-10-07 10:14] LABS: RBC Urine 0-1/HPF (0-5/HPF); Squamous Epithelial Cell Urine 0-1 /HPF (0-5/HPF); WBC Urine 0-1/HPF (0-5/HPF)
[2021-10-07 10:15] LABS: Bacteria Urine Occasional (0-1)
[2021-10-08 18:17] LABS: Absolute CD 4 Helper 420 /uL (359-1519); Eosinophils 2 % (Not Estab.); Eosinophils (Absolute) 0.1 x10E3/uL (0.0-0.4); Hemacrit 45.3 % (34.0-46.6); Hemoglobin 15.5 g/dL (11.1-15.9); Immature Granulocytes 1 % (Not Estab.); Lymphocytes 33 % (Not Estab.); Lymphocytes (Absolute) 1.2 x10E3/uL (0.7-3.1); MCHC 33.9 pg (26.6-33.0); MCHC 34.2 g/dL (31.5-35.7); MCV 99 fL (79-97); Monocytes 10 % (Not Estab.); Monocytes (Absolute) 0.4 x10E3/uL (0.1-0.9); Neutrophils 53 % (Not Estab.); Platelets 228 x10E3/uL (150-450); RDW 12.4 % (11.7-15.4); Red Blood Cells 4.57 x10E6/uL (3.77-5.28); White Blood Cells 3.6 x10E3/uL (3.4-10.8)
[2021-10-09 12:10] LABS: Cholesterol 194 mg/dL (140-199); HDL Cholesterol 41 mg/dL (40-60); LDL Cholesterol Calculated 103 mg/dL (<100); Phosphorous 3.2 mg/dL (2.5-4.5); Triglycerides 250 mg/dL (35-150)
[2021-10-09 22:35] LABS: HIV-1 RNA by PCR <40 copies/mL (.)
== END ==
PROVIDERS: Referring Provider Internal Medicine; Visit Provider Internal Medicine
DX: Z79.899 Other long term (current) drug therapy (principal); E78.49 Other hyperlipidemia; B20 Human immunodeficiency virus [HIV] disease
CPT/HCPCS: 36415; 80061; 81001; 84100; 86361; 87536

== ENCOUNTER → 2022-02-12 11:44 | Outpatient (CLI) | payer OTHER, MEDICAID, SELFPAY ==
[2022-02-12 18:31] LABS: Add Manual Diff / Slide Review NO; Basophils Absolute Auto 0 /uL (0-100); Basophils Percent Auto 0.4 % (0-2); Eosinophils Absolute Auto 100 /uL (0-450); Eosinophils Percent Auto 1.9 % (2-4); Hematocrit 45.1 % (36-46); Hemoglobin 15.6 g/dL (12.0-16.0); Lymphocytes Absolute Auto 1600 /uL (1100-4500); Lymphocytes Percent Auto 28.4 % (25-40); Mean Corpuscular HGB Conc 34.6 % (30-36); Mean Corpuscular Hemoglobin 34.6 PG (26-34); Mean Corpuscular Volume 100.1 fL (80-100); Monocytes Absolute Auto 400 /uL (0-900); Monocytes Percent Auto 7.9 % (3-14); Neutrophils Absolute Auto 3400 /uL (1500-7000); Neutrophils Percent Auto 61.4 % (50-75); Platelet Count 232 X10^3/uL (150-400); White Blood Cell Count 5.5 X10^3/uL (4.5-11.0)
[2022-02-12 18:41] LABS: Alanine Aminotransferase 47 IU/L (<35); Albumin 4.6 g/dL (3.5-5.0); Albumin Globulin Ratio 1.5 (1.0-2.8); Alkaline Phosphatase 113 U/L (38-126); Aspartate Aminotransferase 65 IU/L (14-36); BUN Creatinine Ratio 14.3 (6-22); Bilirubin Total 0.8 mg/dL (0.2-1.3); Blood Urea Nitrogen 18 mg/dL (7-17); Calcium 9.1 mg/dL (8.4-10.2); Carbon Dioxide 29 mmol/L (22-32); Chloride 104 mmol/L (98-107); Cholesterol 210 mg/dL (140-199); Estimated Glomerular Filt Rate 49 mL/min (>60); Globulin 3.1 g/dL (1.7-4.1); Glucose 91 mg/dL (70-100); HDL Cholesterol 47 mg/dL (40-60); HEMOLYSIS 17 (0-50); LDL Cholesterol Calculated 98 mg/dL (<100); Potassium 4.3 mmol/L (3.4-5.1); Sodium 137 mmol/L (137-145); Total Protein 7.7 g/dL (6.3-8.2); Triglycerides 323 mg/dL (35-150)
[2022-02-12 19:05] LABS: TSH w/ Reflex to FT4 0.73 uIU/mL (0.47-4.68)
== END ==
PROVIDERS: PCP Physician Assistant; Visit Provider Physician Assistant
DX: B20 Human immunodeficiency virus [HIV] disease (principal); E78.5 Hyperlipidemia, unspecified; N08 Glomerular disorders in diseases classified elsewhere; N18.30 Chronic kidney disease, stage 3 unspecified; R23.2 Flushing; Z01.419 Encounter for gynecological examination (general) (routine) without abnormal findings
CPT/HCPCS: 80053; 80061; 84443; 85025

== ENCOUNTER → 2022-03-16 13:20 | Outpatient (CLI) | payer OTHER, MEDICAID, SELFPAY ==
[2022-03-16 19:26] LABS: Add Manual Diff / Slide Review NO; Basophils Absolute Auto 0 /uL (0-100); Basophils Percent Auto 0.7 % (0-2); Eosinophils Absolute Auto 200 /uL (0-450); Eosinophils Percent Auto 4.3 % (2-4); Hematocrit 42.4 % (36-46); Hemoglobin 14.8 g/dL (12.0-16.0); Lymphocytes Absolute Auto 1400 /uL (1100-4500); Lymphocytes Percent Auto 27.3 % (25-40); Mean Corpuscular HGB Conc 34.8 % (30-36); Mean Corpuscular Hemoglobin 34.7 PG (26-34); Mean Corpuscular Volume 99.9 fL (80-100); Monocytes Absolute Auto 400 /uL (0-900); Monocytes Percent Auto 7.1 % (3-14); Neutrophils Absolute Auto 3200 /uL (1500-7000); Neutrophils Percent Auto 60.6 % (50-75); Platelet Count 238 X10^3/uL (150-400); Red Blood Cell Count 4.25 X10^6/uL (4.0-5.2); Red Cell Distribution Width 11.8 % (11.6-14.8); White Blood Cell Count 5.3 X10^3/uL (4.5-11.0)
[2022-03-16 19:33] LABS: Alanine Aminotransferase 35 IU/L (<35); Albumin 4.2 g/dL (3.5-5.0); Albumin Globulin Ratio 1.6 (1.0-2.8); Alkaline Phosphatase 84 U/L (38-126); Aspartate Aminotransferase 33 IU/L (14-36); BUN Creatinine Ratio 15.7 (6-22); Bilirubin Total 0.6 mg/dL (0.2-1.3); Blood Urea Nitrogen 19 mg/dL (7-17); Calcium 9.5 mg/dL (8.4-10.2); Carbon Dioxide 26 mmol/L (22-32); Chloride 106 mmol/L (98-107); Estimated Glomerular Filt Rate 52 mL/min (>60); Globulin 2.7 g/dL (1.7-4.1); Glucose 89 mg/dL (70-100); HEMOLYSIS < 15 (0-50); Sodium 139 mmol/L (137-145); Total Protein 6.9 g/dL (6.3-8.2)
[2022-03-16 19:47] LABS: Vitamin D 25 Hydroxy (D3) 59.4 ng/mL (30.0-100.0)
[2022-03-16 19:54] LABS: Free T4, Direct Thyroxine 1.06 ng/dL (0.78-2.19)
[2022-03-17 07:38] LABS: Hepatitis B Core AB w/Reflex Negative (Negative)
== END ==
PROVIDERS: PCP Physician Assistant; Visit Provider Physician Assistant
DX: Z11.59 Encounter for screening for other viral diseases (principal); R74.8 Abnormal levels of other serum enzymes; R53.83 Other fatigue
CPT/HCPCS: 80053; 82306; 84439; 84443; 85025; 86704; 87522

== ENCOUNTER → 2022-09-10 11:04 | Outpatient (CLI) | payer OTHER, MEDICAID, SELFPAY ==
[2022-09-10 13:35] LABS: Bilirubin Urine UA NEGATIVE (NEGATIVE); Color Urine UA YELLOW; Glucose Urine UA NEGATIVE (Negative); Ketones Urine UA NEGATIVE (NEGATIVE); Leukocyte Esterase Urine UA TRACE (NEGATIVE); Nitrite Urine UA NEGATIVE (Negative); Occult Blood Urine UA TRACE-LYSED (Negative); Protein Urine UA TRACE (Negative); Specific Gravity Urine UA 1.025 (1.000-1.035); Urobilinogen Urine UA 0.2 E.U./dL (0.2)
[2022-09-10 13:37] LABS: Add Manual Diff / Slide Review NO; Appearance Urine UA Slightly Cloudy; Basophils Absolute Auto 0 /uL (0-100); Basophils Percent Auto 0.4 % (0-2); Eosinophils Absolute Auto 0 /uL (0-450); Eosinophils Percent Auto 0.5 % (2-4); Hematocrit 46.2 % (36-46); Lymphocytes Absolute Auto 1400 /uL (1100-4500); Mean Corpuscular HGB Conc 34.6 % (30-36); Mean Corpuscular Hemoglobin 34.2 PG (26-34); Mean Corpuscular Volume 98.9 fL (80-100); Monocytes Absolute Auto 500 /uL (0-900); Monocytes Percent Auto 9.3 % (3-14); Neutrophils Absolute Auto 3400 /uL (1500-7000); Neutrophils Percent Auto 62.8 % (50-75); Platelet Count 269 X10^3/uL (150-400); Red Blood Cell Count 4.67 X10^6/uL (4.0-5.2); Red Cell Distribution Width 12.3 % (11.6-14.8); White Blood Cell Count 5.3 X10^3/uL (4.5-11.0)
[2022-09-10 14:07] LABS: Alanine Aminotransferase 38 IU/L (<35); Albumin Globulin Ratio 1.1 (1.0-2.8); Alkaline Phosphatase 86 U/L (38-126); Aspartate Aminotransferase 25 IU/L (14-36); BUN Creatinine Ratio 16.8 (6-22); Bilirubin Total 0.8 mg/dL (0.2-1.3); Blood Urea Nitrogen 22 mg/dL (7-17); Calcium 9.5 mg/dL (8.4-10.2); Carbon Dioxide 28 mmol/L (22-32); Chloride 101 mmol/L (98-107); Cholesterol 210 mg/dL (140-199); Estimated Glomerular Filt Rate 47 mL/min (>60); Globulin 3.5 g/dL (1.7-4.1); Glucose 87 mg/dL (70-100); HDL Cholesterol 48 mg/dL (40-60); HEMOLYSIS < 15 (0-50); LDL Cholesterol Calculated 134 mg/dL (<100); Phosphorous 4.3 mg/dL (2.5-4.5); Potassium 4.4 mmol/L (3.4-5.1); Sodium 138 mmol/L (137-145); Total Protein 7.5 g/dL (6.3-8.2); Triglycerides 141 mg/dL (35-150)
[2022-09-10 14:42] LABS: Amorphous Sediment Urine 1+; Bacteria Urine Occasional (0-1); Calcium Oxalate Crystals Urine Moderate; Culture Indicated Urine Specimen Cultured; Mucus Urine 1+ (Negative); RBC Urine 0-1/HPF (0-5/HPF); Squamous Epithelial Cell Urine 0-1 /HPF (0-5/HPF); WBC Urine 1-5/HPF (0-5/HPF)
[2022-09-11 13:47] LABS: Absolute CD 4 Helper 512 /uL (359-1519); Eosinophils 1 % (Not Estab.); Hemacrit 38.5 % (34.0-46.6); Hemoglobin 13.5 g/dL (11.1-15.9); Immature Granulocytes 0 % (Not Estab.); Lymphocytes 24 % (Not Estab.); Lymphocytes (Absolute) 1.4 x10E3/uL (0.7-3.1); MCHC 34.6 pg (26.6-33.0); MCHC 35.1 g/dL (31.5-35.7); MCV 99 fL (79-97); Monocytes 11 % (Not Estab.); Monocytes (Absolute) 0.6 x10E3/uL (0.1-0.9); Neutrophils 63 % (Not Estab.); Neutrophils (Absolute) 3.5 x10E3/uL (1.4-7.0); Percent CD 4 Pos Lymph 36.6 % (30.8-58.5); Platelets 359 x10E3/uL (150-450); White Blood Cells 5.6 x10E3/uL (3.4-10.8)
[2022-09-18 00:06] LABS: HIV-1 RNA by PCR <40 copies/mL (.)
== END ==
PROVIDERS: PCP Physician Assistant; Referring Provider Internal Medicine; Visit Provider Internal Medicine
DX: E78.49 Other hyperlipidemia (principal); E78.5 Hyperlipidemia, unspecified; B20 Human immunodeficiency virus [HIV] disease
CPT/HCPCS: 36415; 80053; 80061; 81001; 84100; 85025; 86361; 87086; 87536

== ENCOUNTER 2022-12-02 14:16 | Emergency (ER) | payer OTHER, MEDICAID, SELFPAY ==
[2022-12-02 14:34] VITALS: BP 140/86; PULSE 69; RESP 15; TEMP 36.1; O2SAT 98; BMI 25.4
--- NOTE | 2022-12-02 14:37 | DI.US.S_ITS ---
PROCEDURE: US ABDOMEN LIMITED INDICATIONS: RUQ ABD PAIN TECHNIQUE: Real-time focused scanning was performed of the abdomen, with image documentation. COMPARISON: None. FINDINGS: Liver measures 17 cm. Overall echotexture is within normal limits. There are small gallstones. The gallbladder is distended. Wall measures 2 mm. CBD measures 5 mm. Pancreas is within normal limits. IMPRESSION: Distended gallbladder and cholelithiasis. If further imaging is needed, consider nuclear medicine HIDA study. Dictated by: Galdino Solis M.D. on 12/02/2022 at 16:48 Approved by: Galdnio Solis M.D. on 12/02/2022 at 16:50
[2022-12-02] MEDS: ONDANSETRON 4 MG/2 ML INJ IV (14:40)
[2022-12-02 14:57] LABS: Add Manual Diff / Slide Review NO; Basophils Absolute Auto 0 /uL (0-100); Basophils Percent Auto 0.6 % (0-2); Eosinophils Absolute Auto 100 /uL (0-450); Eosinophils Percent Auto 1.1 % (2-4); Hematocrit 43.9 % (36-46); Hemoglobin 15.3 g/dL (12.0-16.0); Lymphocytes Absolute Auto 1400 /uL (1100-4500); Lymphocytes Percent Auto 17.2 % (25-40); Mean Corpuscular HGB Conc 34.8 % (30-36); Mean Corpuscular Volume 100.5 fL (80-100); Monocytes Absolute Auto 500 /uL (0-900); Monocytes Percent Auto 6.8 % (3-14); Neutrophils Absolute Auto 5900 /uL (1500-7000); Neutrophils Percent Auto 74.3 % (50-75); Platelet Count 219 X10^3/uL (150-400); Red Blood Cell Count 4.37 X10^6/uL (4.0-5.2); Red Cell Distribution Width 12.8 % (11.6-14.8)
[2022-12-02 15:07] LABS: Alanine Aminotransferase 44 IU/L (<35); Albumin 4.4 g/dL (3.5-5.0); Albumin Globulin Ratio 1.4 (1.0-2.8); Alkaline Phosphatase 106 U/L (38-126); Aspartate Aminotransferase 36 IU/L (14-36); Bilirubin Total 0.8 mg/dL (0.2-1.3); Blood Urea Nitrogen 16 mg/dL (7-17); Calcium 9.1 mg/dL (8.4-10.2); Carbon Dioxide 28 mmol/L (22-32); Chloride 105 mmol/L (98-107); Estimated Glomerular Filt Rate 55 mL/min (>60); Globulin 3.2 g/dL (1.7-4.1); Glucose 91 mg/dL (70-100); HEMOLYSIS 27 (0-50); Lipase 123 U/L (23-300); Sodium 140 mmol/L (137-145); Total Protein 7.6 g/dL (6.3-8.2)
--- NOTE | 2022-12-02 17:13 | ED_ITS ---
HPI - Abdominal Pain <GIANNI Rivera - Last Filed: 12/02/22 18:45> General Chief Complaint: Abdominal Pain Stated Complaint: pain under right lower ribs reffered by clinic Time Seen by Provider: 12/02/22 17:12 Source: patient Mode of arrival: Ambulatory History of Present Illness HPI narrative: 57-year-old female without significant medical history who presents emergency department complaining of right upper quadrant abdominal pain since this morning with nausea and vomiting. Denies history of this in the past, has history of HIV, CKD however this is improving, PTSD and migraines. States that her last stool was a couple of days ago and states they are always hard and small. She has had a partial hysterectomy but still has her ovaries, complains of abdominal wall fullness and bloating sensation, pain with nausea to the right upper quadrant, symptoms have improved over the course of today, denies recent fever, chills, nausea vomiting, difficulty breathing, dysuria, urinary frequency, urgency or pelvic pain. She denies any recent injury. Related Data Home Medications Medication Instructions Recorded Confirmed acyclovir 400 mg tablet (Zovirax) 400 mg PO BID ##0 12/10/12 12/02/22 dolutegravir 50 mg tablet 50 mg PO QPM 05/01/19 12/02/22 emtricitabine 200 mg-tenofovir 1 tab PO QPM 05/01/19 12/02/22 alafenamide fumarate 25 mg tablet Previous Rx's Medication Instructions Recorded fluticasone propionate 50 1 spray intranasal DAILY #15.8 mL 08/14/21 mcg/actuation nasal spray,suspension (Flonase Allergy Relief) fexofenadine 60 mg tablet (Emily 60 mg PO BID #60 tabs 03/11/22 Allergy) acetaminophen 650 mg 650 mg PO Q8H PRN right shoulder 04/02/22 tablet,extended release (Tylenol 8 pain #40 tabs Hour) sertraline 25 mg tablet (Zoloft) 75 mg PO DAILY #180 tabs 04/27/22 atorvastatin 20 mg tablet See Rx Instructions .Route 11/20/22 .COMPLEX #30 tabs trazodone 50 mg tablet See Rx Instructions .Route 11/20/22 .COMPLEX #30 tabs omeprazole 20 mg tablet,delayed 20 mg PO DAILY #30 tabs 03/08/23 release ondansetron 4 mg disintegrating 4 mg PO Q8H PRN nausea and 12/02/22 tablet vomiting #10 tabs polyethylene glycol 3350 17 17 g PO BID PRN constipation #238 12/02/22 gram/dose oral powder (Miralax) grams Allergies Allergy/AdvReac Type Severity Reaction Status Date / Time codeine [CODEINE] Allergy Severe ANAPHYLAXIS, Verified 12/02/22 14:34 VOMITING famciclovir Allergy Unknown SKIN:ITCHIN Verified 12/02/22 14:34 G NSAIDS (Non-Steroidal AdvReac Severe HAS Verified 12/02/22 14:34 Anti-Inflamma NEPHROPATHY AND CKD Review of Systems <GIANNI Rivera - Last Filed: 12/02/22 18:45> Review of Systems ROS Unobtainable: All systems reviewed & are unremarkable except as noted in HPI and below Patient History <GIANNI Rivera - Last Filed: 12/02/22 18:45> Medical History Allergic rhinitis Arthritis of hand Biliary sludge Cervical cancer screening History of cervical dysplasia History of herpes labialis Screening for colon cancer Well woman exam with routine gynecological exam Surgical History S/P cervical spinal fusion Social History Smoking Status: Never smoker Smoking Status: Never smoker alcohol intake frequency: holidays/special occasions only Substance Use Type: does not use Exam <GIANNI Rivera - Last Filed: 12/02/22 18:45> Narrative Exam Narrative: Reviewed vitals signs and nursing notes. General: cooperative, in no acute distress, well groomed HEENT: symmetrical facial expressions, moist mucous membranes, neck is supple CV: regular rate and rhythm, warm extremities Respiratory: Without abnormal breath sounds, normal work of breathing, without tachypnea, hypoxia. GI: abdomen soft, positive Verdugo sign, tenderness to right upper quadrant with inspiration, no CVAT, no other abdominal tenderness to palpation, nondistended without masses MSK: moves all extremities, neurovascularly intact, no weakness, normal tone Skin: brisk capillary refill, without rash or wound Neuro: normal speech and cognition, A&O x3, ambulatory, clear speech Initial Vital Signs Initial Vital Signs: Vital Signs Temperature 97.0 F L 12/02/22 14:34 Pulse Rate 69 12/02/22 14:34 Respiratory Rate 15 12/02/22 14:34 Blood Pressure 140/86 12/02/22 14:34 Pulse Oximetry 98 12/02/22 14:34 Oxygen Delivery Method Room Air 12/02/22 14:34 <William Abbott DO - Last Filed: 12/02/22 18:54> Initial Vital Signs Initial Vital Signs: Vital Signs Temperature 97.0 F L 12/02/22 14:34 Pulse Rate 69 12/02/22 14:34 Respiratory Rate 15 12/02/22 14:34 Blood Pressure 140/86 12/02/22 14:34 Pulse Oximetry 98 12/02/22 14:34 Oxygen Delivery Method Room Air 12/02/22 14:34 Course <GIANNI Rivera - Last Filed: 12/02/22 18:45> Orders Ordered: ED Orders 12/02/22 14:37 US abdomen limited Stat 12/02/22 14:43 Complete Blood Count AUTO DIFF Stat Comprehensive Metabolic Panel Stat Lipase Stat 12/02/22 14:50 EKG-12 Lead Stat Discontinued Medications Ketorolac Tromethamine (Ketorolac 30 Mg/Ml Vial) 10 mg IV NOW ONE Stop: 12/02/22 17:28 Last Admin: 12/02/22 18:08 Dose: Not Given Documented By: KIA Ondansetron HCl (Ondansetron 4 Mg/2 Ml Inj) 4 mg IV NOW PRN PRN Reason: Nausea And Vomiting Last Admin: 12/02/22 14:40 Dose: 4 mg Documented By: ALEX Ondansetron HCl (Ondansetron 4 Mg Odt) 4 mg SL NOW ONE Stop: 12/02/22 17:28 Last Admin: 12/02/22 18:08 Dose: Not Given Documented By: KIA Vital Signs Vital signs: Vital Signs - 8 hr 12/02/22 14:34 12/02/22 18:15 Temperature 97.0 F L Pulse Rate 69 72 Respiratory Rate 15 18 Blood Pressure 140/86 Pulse Oximetry 98 99 Oxygen Delivery Method Room Air Room Air <William Abbott DO - Last Filed: 12/02/22 18:54> Orders Ordered: ED Orders 12/02/22 14:37 US abdomen limited Stat 12/02/22 14:43 Complete Blood Count AUTO DIFF Stat Comprehensive Metabolic Panel Stat Lipase Stat 12/02/22 14:50 EKG-12 Lead Stat Discontinued Medications Ketorolac Tromethamine (Ketorolac 30 Mg/Ml Vial) 10 mg IV NOW ONE Stop: 12/02/22 17:28 Last Admin: 12/02/22 18:08 Dose: Not Given Documented By: KIA Ondansetron HCl (Ondansetron 4 Mg/2 Ml Inj) 4 mg IV NOW PRN PRN Reason: Nausea And Vomiting Last Admin: 12/02/22 14:40 Dose: 4 mg Documented By: ALEX Ondansetron HCl (Ondansetron 4 Mg Odt) 4 mg SL NOW ONE Stop: 12/02/22 17:28 Last Admin: 12/02/22 18:08 Dose: Not Given Documented By: KIA Vital Signs Vital signs: Vital Signs - 8 hr 12/02/22 14:34 12/02/22 18:15 Temperature 97.0 F L Pulse Rate 69 72 Respiratory Rate 15 18 Blood Pressure 140/86 Pulse Oximetry 98 99 Oxygen Delivery Method Room Air Room Air MDM - Abdominal Pain <MONTANA RiveraP - Last Filed: 12/02/22 18:45> Lab Data 12/02/22 14:43 12/02/22 14:43 Labs: Lab Results 12/02/22 12/02/22 Range/Units 14:43 14:43 WBC 8.0 (4.5-11.0) X10^3/uL RBC 4.37 (4.0-5.2) X10^6/uL Hgb 15.3 (12.0-16.0) g/dL Hct 43.9 (36-46) % MCV 100.5 H (80-100) fL MCH 35.0 H (26-34) PG MCHC 34.8 (30-36) % RDW 12.8 (11.6-14.8) % Plt Count 219 (150-400) X10^3/uL Neut % (Auto) 74.3 (50-75) % Lymph % (Auto) 17.2 L (25-40) % [place] % (Auto) 6.8 (3-14) % Eos % (Auto) 1.1 L (2-4) % Baso % (Auto) 0.6 (0-2) % Neut # (Auto) 5900 (0626-1306) /uL Lymph # (Auto) 1400 (4458-7040) /uL [place] # (Auto) 500 (0-900) /uL Eos # (Auto) 100 (0-450) /uL Baso # (Auto) 0 (0-100) /uL Sodium 140 (137-145) mmol/L Potassium 4.0 (3.4-5.1) mmol/L Chloride 105 (98-107) mmol/L Carbon Dioxide 28 (22-32) mmol/L BUN 16 (7-17) mg/dL Creatinine 1.14 H (0.52-1.04) mg/dL Estimated GFR 55 L (>60) mL/min BUN/Creatinine Ratio 14.0 (6-22) Glucose 91 (70-100) mg/dL Calcium 9.1 (8.4-10.2) mg/dL Total Bilirubin 0.8 (0.2-1.3) mg/dL AST 36 (14-36) IU/L ALT 44 H (<35) IU/L Alkaline Phosphatase 106 (38-126) U/L Total Protein 7.6 (6.3-8.2) g/dL Albumin 4.4 (3.5-5.0) g/dL Globulin 3.2 (1.7-4.1) g/dL Albumin/Globulin Ratio 1.4 (1.0-2.8) Lipase 123 (23-300) U/L Point of care testing: Urine Dip Bedside Urine Glucose Negative Bedside Urine Bilirubin - Negative Bedside Urine Ketone - Negative Urine Specific [place] 1.015 Bedside Urine Occult Blood - Negative Bedside Urine pH 7.0 Bedside Urine Protein - Negative Bedside Urine Urobilinogen - Negative Bedside Urine Nitrite - Negative Bedside Urine Leukocytes - Negative Esterase Imaging Data US - abdomen: Radiologist's Impression: PROCEDURE: US ABDOMEN LIMITED ? INDICATIONS:? RUQ ABD PAIN ? TECHNIQUE:? Real-time focused scanning was performed of the abdomen, with image documentation.? ? COMPARISON:? None. ? FINDINGS:? Liver measures 17 cm.? Overall echotexture is within normal limits.? There are small gallstones.? The gallbladder is distended.? Wall measures 2 mm.? CBD measures 5 mm. ?Pancreas is within normal limits. ? IMPRESSION:? Distended gallbladder and cholelithiasis.? If further imaging is needed, consider nuclear medicine HIDA study.? ? Dictated by: Galdino Solis M.D. on 12/02/2022 at 16:48 ? ? Approved by: Galdino Solis M.D. on 12/02/2022 at 16:50 ? MDM Narrative Medical decision making narrative: Chief Complaint: Right upper quadrant pain since this morning Independent historian: Patient Differential diagnoses include but are not limited to: Biliary colic, cholelithiasis cholecystitis, choledocholithiasis with or without acute cholangitis, gallstone pancreatitis, GERD, heartburn, muscle strain I have independently reviewed the patient's vital signs and nursing notes as well as prior records if available. Pertinent lab findings reviewed: No leukocytosis or anemia, mild lymphopenia 17.2, no electrolyte abnormalities, creatinine is improved from prior at 15:22 at 1.14 compared with 1.31, GFR is improved at 55 compared with 47, patient is p.o. tolerant, without elevation to lipase or other liver enzymes compared with prior lab work. UA is negative for abnormality. Pertinent Imaging reviewed: Right upper quadrant ultrasound shows cholelithiasis without evidence of cholecystitis, distended gallbladder with cholelithiasis, wall measures 2 mm and CBD measures 5 mm, liver [place] 17 mm. Pancreas is within normal limits. Discussed these findings with the patient and encouraged her to follow a clear liquid diet for the next 24-48 hours until her symptoms improve, avoid fatty foods, she was given information on how to reduce but her diet and schedule follow-up with gastroenterology for recheck. This is her 1st incidence of this however on chart review it appears that patient has had gallbladder sludge in the past. She denies fever, chills, she remains p.o. tolerant, and her pain is well controlled today. She was treated with Toradol 10 mg and Zofran, has been drinking water, was prescribed MiraLax as she has history of constipation and last bowel movement was 3 days ago. Encouraged to use this daily titrate for soft stools, omeprazole, and Zofran as needed for nausea vomiting. She understands to follow up with her providers as indicated and return emergency department if she develops pain out of portion, or fever with chills and if she is not tolerating p.o.. Social considerations that may affect disposition: none Questions are addressed and there is agreement with the plan and for follow-up. Patient is appropriate for outpatient management. MIPS: This encounter doesn't have any diagnosis' associated with MIPS criteria. <William Abbott, DO - Last Filed: 12/02/22 18:54> Lab Data Labs: Lab Results 12/02/22 12/02/22 Range/Units 14:43 14:43 WBC 8.0 (4.5-11.0) X10^3/uL RBC 4.37 (4.0-5.2) X10^6/uL Hgb 15.3 (12.0-16.0) g/dL Hct 43.9 (36-46) % MCV 100.5 H (80-100) fL MCH 35.0 H (26-34) PG MCHC 34.8 (30-36) % RDW 12.8 (11.6-14.8) % Plt Count 219 (150-400) X10^3/uL Neut % (Auto) 74.3 (50-75) % Lymph % (Auto) 17.2 L (25-40) % Canyon % (Auto) 6.8 (3-14) % Eos % (Auto) 1.1 L (2-4) % Baso % (Auto) 0.6 (0-2) % Neut # (Auto) 5900 (0832-2882) /uL Lymph # (Auto) 1400 (2273-0210) /uL [place] # (Auto) 500 (0-900) /uL Eos # (Auto) 100 (0-450) /uL Baso # (Auto) 0 (0-100) /uL Sodium 140 (137-145) mmol/L Potassium 4.0 (3.4-5.1) mmol/L Chloride 105 (98-107) mmol/L Carbon Dioxide 28 (22-32) mmol/L BUN 16 (7-17) mg/dL Creatinine 1.14 H (0.52-1.04) mg/dL Estimated GFR 55 L (>60) mL/min BUN/Creatinine Ratio 14.0 (6-22) Glucose 91 (70-100) mg/dL Calcium 9.1 (8.4-10.2) mg/dL Total Bilirubin 0.8 (0.2-1.3) mg/dL AST 36 (14-36) IU/L ALT 44 H (<35) IU/L Alkaline Phosphatase 106 (38-126) U/L Total Protein 7.6 (6.3-8.2) g/dL Albumin 4.4 (3.5-5.0) g/dL Globulin 3.2 (1.7-4.1) g/dL Albumin/Globulin Ratio 1.4 (1.0-2.8) Lipase 123 (23-300) U/L Point of care testing: Urine Dip Bedside Urine Glucose Negative Bedside Urine Bilirubin - Negative Bedside Urine Ketone - Negative Urine Specific [place] 1.015 Bedside Urine Occult Blood - Negative Bedside Urine pH 7.0 Bedside Urine Protein - Negative Bedside Urine Urobilinogen - Negative Bedside Urine Nitrite - Negative Bedside Urine Leukocytes - Negative Esterase Discharge Plan Departure Patient Disposition: Home Clinical Impression: Cholelithiasis Qualifiers: Cholelithiasis location: gallbladder Cholecystitis presence: without cho lecystitis Biliary obstruction: without biliary obstruction Qualified Code(s): K80.20 - Calculus of gallbladder without cholecystitis without obstruction Instructions: Gallstones, Fat-Restricted Diet Activity Restrictions/Additional Instructions: *You have been diagnosed with gallstones without of infection of the gallbladder wall, obstruction, or other acute infection. I am sorry for your pain, this is typically exacerbated by fatty foods. Start a clear liquid diet until your symptoms start to improve, use Zofran as needed for nausea every 8 hours. Please also start taking omeprazole to prevent acid reflux and gastric ulcer. You can follow-up with gastroenterology at [facility] if you have ongoing symptoms related to this. Please schedule follow up with your primary care provider as needed, I will forward this note to her. There is no evidence of pancreatitis today, but if you worsening pain or pain out of proportion, worsening nausea or vomiting with fever, please come back emergency department. Gallstones are solid, pebble-like concretions that abnormally form inside the gallbladder. The gallbladder is located in the upper right abdomen, under the liver. Gallstones are solid concretions that form inside the gallbladder. Gallstones may be as small as tiny specks or as large as the gallbladder itself. The vast majority, however, are smaller than one inch (2.5 cm) and are one of two major types, cholesterol or pigment. Gallstone type is important since cholesterol stones are more likely to respond to non-surgical treatments than pigment stones. ?Cholesterol gallstones account for approximately 80 percent of gallstones in developed countries, including the [place]. Complications of gallstones Acute cholecystitis???Acute cholecystitis refers to inflammation of the gallbladder. This happens when there is a complete blockage of the gallbladder, caused by a gallstone. Unlike biliary colic, which resolves within a few hours, pain is constant with acute cholecystitis and fever is common. Acute cholecystitis is a serious condition that requires immediate medical treatment in the hospital. Treatment includes IV fluids, pain medicine, and usually antibiotics. Surgery to remove the gallbladder along with its contained stones is usually recommended during the hospitalization or shortly thereafter. If not treated, acute cholecystitis can lead to gallbladder rupture, a life- threatening condition. Choledocholithiasis???This?complication can develop if one or more gallstones leave the gallbladder to the main bile ducts and block the area where bile exits into the intestine. It may lead to: ?Jaundice, which is a yellow discoloration of the skin and eyes. ?Acute cholangitis, which is an infection of the bile ducts that causes pain, chills, and fever. This is a life-threatening condition that requires prompt treatment, usually involving removal of the blocking gallstone with a non- surgical procedure known as endoscopic retrograde cholangiopancreatography, or ERCP. ?Acute pancreatitis, which is sudden inflammation of the pancreas, leading to severe abdominal pain. GALLSTONE DIAGNOSIS There are two parts to diagnosing gallstones: determining if gallstones are present and determining if gallstones are the cause of symptoms. Gallstones are usually found using ultrasound imaging, a painless test that uses sound waves to create an image of the gallbladder. An ultrasound is the most sensitive test with which to find gallbladder stones, but gallstones can also be detected on other imaging tests. Having gallstones does not mean that the gallstones are the cause of your symptoms. Thus, other tests may be recommended if there is doubt about the relationship of the gallstones to your symptoms. GALLSTONE TREATMENT There are three general options for people with gallstones; the best option depends upon your individual situation. ?Expectant management: Do nothing, wait and watch ?Surgical therapy: Remove the gallbladder and stones ?Non-surgical therapy: Eliminate the stones while preserving the gallbladder Surgical treatment Cholecystectomy???Cholecystectomy is a surgery that removes the gallbladder. It is one of the most commonly performed surgeries in the [place]. The surge ry is done in an operating room after you are given anesthesia. The gallbladder is an important organ, but you can live without it. Removing the gallbladder does not usually cause long-term problems or serious complications. However, about one-half of people who have their gallbladder removed develop looser stools, gas, and bloating; in most people these symptoms are mild, do not require treatment, and improve with time. *What to do: *Please continue to take your regular medications as directed. [x ] New medication prescriptions sent to your pharmacy: [Raised in E sound] [ ] New medication written as a paper prescription [ ] No new medications given *Please follow up with your primary care provider in 2-3 days, call for an appointment. Let them know you were seen in the Emergency Department and that we asked that you be seen for follow-up. We will electronically transmit a record of today's note if your PCP is in our system *If you do not have a primary care provider please contact [phone] to establish care with one of [facility] primary care providers. *Return to Emergency Department if you should have any new, worsening, or concerning symptoms, such as [fever greater than 101F, chills, worsening pain, persistent vomiting or other bothersome symptoms]. Prescriptions: New omeprazole 20 mg tablet,delayed release (DR/EC) 20 mg PO DAILY Qty: 30 0RF polyethylene glycol 3350 [Miralax] 17 gram/dose powder 17 g PO BID PRN (Reason: constipation) Qty: 238 0RF Rx Instructions: Please use 1-2 times daily for soft stools ondansetron 4 mg tablet,disintegrating 4 mg PO Q8H PRN (Reason: nausea and vomiting) Qty: 10 0RF No Action acyclovir [Zovirax] 400 MG tablet 400 mg PO BID Qty: 0 sertraline [Zoloft] 25 mg tablet 75 mg PO DAILY Qty: 180 3RF atorvastatin 20 mg tablet See Rx Instructions .ROUTE .COMPLEX Qty: 30 0RF Dose Instruction: TAKE 1 TABLET BY MOUTH EVERY DAY Rx Instructions: TAKE 1 TABLET BY MOUTH EVERY DAY trazodone 50 mg tablet See Rx Instructions .ROUTE .COMPLEX Qty: 30 0RF Dose Instruction: TAKE 1/2 TABLET TO 1 TABLET BY MOUTH AT BEDTIME Rx Instructions: TAKE 1/2 TABLET TO 1 TABLET BY MOUTH AT BEDTIME Tivicay 50 mg tablet 50 mg PO QPM Patient Comments: TAKE 1 TABLET (50 MG TOTAL) BY MOUTH DAILY Descovy 200-25 mg tablet 1 tab PO QPM Patient Comments: TAKE 1 TABLET BY MOUTH DAILY fluticasone propionate [Flonase Allergy Relief] 50 mcg/actuation spray,suspension 1 spray Intranasal DAILY Qty: 15.8 3RF acetaminophen [Tylenol 8 Hour] 650 mg tablet extended release 650 mg PO Q8H PRN (Reason: right shoulder pain) Qty: 40 0RF fexofenadine [Emily Allergy] 60 mg tablet 60 mg PO BID Qty: 60 0RF Rx Instructions: do not take with loratadine Referrals: [facility] [Provider Group] Selam Mcintyre PA-C [Primary Care Provider] - Stand Alone Forms: Patient Portal/API <William Abbott DO - Last Filed: 12/02/22 18:54> [facility]: Dr Abbott Co-Sign Statement: I was available for consultation during this patient's emergency department visit. This chart is signed by myself for administrative purposes only. I did not have direct contact with this patient during this visit. They were seen independently by the APC.
[2022-12-02 18:15] VITALS: PULSE 72; RESP 18; O2SAT 99
== END 2022-12-02 18:16 | disposition home or self-care (01) ==
PROVIDERS: Emergency Medicine; Emergency Provider Nurse Practitioner Critical Care Medicine; PCP Physician Assistant
DX: K80.20 Calculus of gallbladder without cholecystitis without obstruction (principal); R11.2 Nausea with vomiting, unspecified; R10.11 Right upper quadrant pain
CPT/HCPCS: 36415; 76705; 80053; 81002; 81003; 83690; 85025; 93005; 96374; 99284; J2405

== ENCOUNTER → 2023-03-11 08:55 | Outpatient (CLI) | payer OTHER, MEDICAID, SELFPAY ==
[2023-03-11 10:03] LABS: Alanine Aminotransferase 37 IU/L (<35); Albumin 4.1 g/dL (3.5-5.0); Albumin Globulin Ratio 1.4 (1.0-2.8); Alkaline Phosphatase 113 U/L (38-126); Aspartate Aminotransferase 36 IU/L (14-36); BUN Creatinine Ratio 16.4 (6-22); Bilirubin Total 0.6 mg/dL (0.2-1.3); Blood Urea Nitrogen 19 mg/dL (7-17); Calcium 9.1 mg/dL (8.4-10.2); Carbon Dioxide 28 mmol/L (22-32); Chloride 102 mmol/L (98-107); Estimated Glomerular Filt Rate 54 mL/min (>60); Globulin 2.9 g/dL (1.7-4.1); Glucose 93 mg/dL (70-100); HEMOLYSIS < 15 (0-50); Phosphorous 3.3 mg/dL (2.5-4.5); Sodium 137 mmol/L (137-145)
[2023-03-11 10:30] LABS: Appearance Urine UA CLEAR; Bilirubin Urine UA NEGATIVE (NEGATIVE); Color Urine UA YELLOW; Glucose Urine UA NEGATIVE (Negative); Ketones Urine UA NEGATIVE (NEGATIVE); Leukocyte Esterase Urine UA NEGATIVE (NEGATIVE); Nitrite Urine UA NEGATIVE (Negative); Occult Blood Urine UA NEGATIVE (Negative); Protein Urine UA NEGATIVE (Negative); Specific Gravity Urine UA 1.015 (1.000-1.035); Urobilinogen Urine UA 0.2 E.U./dL (0.2)
[2023-03-11 10:43] LABS: Bacteria Urine None Seen; Culture Indicated Urine Cult Not Indicated; RBC Urine None Seen (0-5/HPF); Squamous Epithelial Cell Urine None Seen (0-5/HPF); Urine Comments Microscopic Normal; WBC Urine None Seen (0-5/HPF)
[2023-03-18 14:13] LABS: HIV-1 RNA by PCR <40 copies/mL (.)
== END ==
PROVIDERS: PCP Physician Assistant; Referring Provider Internal Medicine; Visit Provider Internal Medicine
DX: B20 Human immunodeficiency virus [HIV] disease (principal)
CPT/HCPCS: 36415; 80053; 81001; 84100; 87536

== ENCOUNTER → 2023-10-18 08:49 | Outpatient (CLI) | payer OTHER, MEDICAID, SELFPAY ==
[2023-10-18 09:12] LABS: Urine Volume 10mL (spun)
[2023-10-18 09:48] LABS: Add Manual Diff / Slide Review NO; Basophils Absolute Auto 0 /uL (0-100); Basophils Percent Auto 0.5 % (0-2); Eosinophils Absolute Auto 100 /uL (0-450); Eosinophils Percent Auto 1.6 % (2-4); Hematocrit 43.1 % (36-46); Hemoglobin 14.9 g/dL (12.0-16.0); Lymphocytes Absolute Auto 1400 /uL (1100-4500); Lymphocytes Percent Auto 25.6 % (25-40); Mean Corpuscular HGB Conc 34.6 % (30-36); Mean Corpuscular Hemoglobin 34.7 PG (26-34); Mean Corpuscular Volume 100.5 fL (80-100); Monocytes Absolute Auto 400 /uL (0-900); Monocytes Percent Auto 7.9 % (3-14); Neutrophils Absolute Auto 3600 /uL (1500-7000); Neutrophils Percent Auto 64.4 % (50-75); Platelet Count 222 X10^3/uL (150-400); Red Blood Cell Count 4.29 X10^6/uL (4.0-5.2); Red Cell Distribution Width 12.4 % (11.6-14.8); White Blood Cell Count 5.6 X10^3/uL (4.5-11.0)
[2023-10-18 09:54] LABS: Appearance Urine UA CLEAR; Bilirubin Urine UA NEGATIVE (NEGATIVE); Color Urine UA YELLOW; Glucose Urine UA NEGATIVE (Negative); Ketones Urine UA NEGATIVE (NEGATIVE); Leukocyte Esterase Urine UA 1+ (NEGATIVE); Nitrite Urine UA NEGATIVE (Negative); Occult Blood Urine UA NEGATIVE (Negative); Protein Urine UA NEGATIVE (Negative); Specific Gravity Urine UA 1.025 (1.000-1.035); Urobilinogen Urine UA 0.2 E.U./dL (0.2)
[2023-10-18 09:58] LABS: pH Urine UA 5.5 (4.5-8.0)
[2023-10-18 10:04] LABS: Alanine Aminotransferase 41 IU/L (<35); Albumin 4.2 g/dL (3.5-5.0); Albumin Globulin Ratio 1.3 (1.0-2.8); Alkaline Phosphatase 99 U/L (38-126); Aspartate Aminotransferase 39 IU/L (14-36); Bilirubin Total 0.7 mg/dL (0.2-1.3); Blood Urea Nitrogen 17 mg/dL (7-17); Calcium 9.5 mg/dL (8.4-10.2); Carbon Dioxide 25 mmol/L (22-32); Chloride 104 mmol/L (98-107); Cholesterol 205 mg/dL (140-199); Estimated Glomerular Filt Rate 56 mL/min (>60); Globulin 3.3 g/dL (1.7-4.1); Glucose 97 mg/dL (80-110); HDL Cholesterol 39 mg/dL (40-60); HEMOLYSIS < 15 (0-50); LDL Cholesterol Calculated 103 mg/dL (<100); Phosphorous 2.9 mg/dL (2.8-4.1); Sodium 137 mmol/L (137-145); Total Protein 7.5 g/dL (6.3-8.2); Triglycerides 315 mg/dL (35-150)
[2023-10-18 10:06] LABS: Bacteria Urine None Seen; Culture Indicated Urine Cult Not Indicated; RBC Urine None Seen (0-5/HPF); Squamous Epithelial Cell Urine 1-5 /HPF (0-5/HPF); WBC Urine 1-5/HPF (0-5/HPF)
[2023-10-19 16:14] LABS: Absolute CD 4 Helper 463 /uL (359-1519); Eosinophils 2 % (Not Estab.); Eosinophils (Absolute) 0.1 x10E3/uL (0.0-0.4); Hemacrit 42.2 % (34.0-46.6); Hemoglobin 14.3 g/dL (11.1-15.9); Immature Granulocytes 0 % (Not Estab.); Lymphocytes 25 % (Not Estab.); Lymphocytes (Absolute) 1.4 x10E3/uL (0.7-3.1); MCHC 33.9 g/dL (31.5-35.7); MCHC 34.3 pg (26.6-33.0); MCV 101 fL (79-97); Monocytes 8 % (Not Estab.); Monocytes (Absolute) 0.5 x10E3/uL (0.1-0.9); Neutrophils 64 % (Not Estab.); Neutrophils (Absolute) 3.6 x10E3/uL (1.4-7.0); Percent CD 4 Pos Lymph 33.1 % (30.8-58.5); Platelets 243 x10E3/uL (150-450); RDW 12.4 % (11.7-15.4); Red Blood Cells 4.17 x10E6/uL (3.77-5.28); White Blood Cells 5.7 x10E3/uL (3.4-10.8)
[2023-10-21 12:11] LABS: HIV-1 RNA by PCR <20 copies/mL (.)
== END ==
PROVIDERS: PCP Physician Assistant; Referring Provider Internal Medicine; Visit Provider Internal Medicine
DX: B20 Human immunodeficiency virus [HIV] disease (principal); E78.49 Other hyperlipidemia; Z79.899 Other long term (current) drug therapy
CPT/HCPCS: 36415; 80053; 80061; 81001; 84100; 85025; 86361; 87536

== ENCOUNTER → 2024-02-29 08:46 | Outpatient (CLI) | payer OTHER, MEDICAID, SELFPAY ==
[2024-02-29 20:42] LABS: Alanine Aminotransferase 54 IU/L (<35); Albumin 4.4 g/dL (3.5-5.0); Albumin Globulin Ratio 1.5 (1.0-2.8); Alkaline Phosphatase 107 U/L (38-126); Aspartate Aminotransferase 43 IU/L (14-36); BUN Creatinine Ratio 12.2 (6-22); Blood Urea Nitrogen 17 mg/dL (7-17); Calcium 9.6 mg/dL (8.4-10.2); Carbon Dioxide 24 mmol/L (22-32); Chloride 109 mmol/L (98-107); Cholesterol 197 mg/dL (140-199); Estimated Glomerular Filt Rate 43 mL/min (>60); Globulin 2.9 g/dL (1.7-4.1); Glucose 108 mg/dL (80-110); HDL Cholesterol 41 mg/dL (40-60); HEMOLYSIS 19 (0-50); LDL Cholesterol Calculated 115 mg/dL (<100); Potassium 4.1 mmol/L (3.4-5.1); Sodium 139 mmol/L (137-145); Total Protein 7.3 g/dL (6.3-8.2); Triglycerides 206 mg/dL (35-150)
== END ==
PROVIDERS: PCP Physician Assistant; Visit Provider Physician Assistant
DX: E78.5 Hyperlipidemia, unspecified (principal); R74.8 Abnormal levels of other serum enzymes; Z79.899 Other long term (current) drug therapy
CPT/HCPCS: 80053; 80061

== ENCOUNTER → 2024-03-16 10:36 | Outpatient (CLI) | payer OTHER, MEDICAID, SELFPAY ==
[2024-03-16 12:17] LABS: Alanine Aminotransferase 51 IU/L (<35); Albumin 4.3 g/dL (3.5-5.0); Albumin Globulin Ratio 1.5 (1.0-2.8); Alkaline Phosphatase 106 U/L (38-126); Aspartate Aminotransferase 42 IU/L (14-36); BUN Creatinine Ratio 13.8 (6-22); Bilirubin Total 0.9 mg/dL (0.2-1.3); Blood Urea Nitrogen 17 mg/dL (7-17); Calcium 8.9 mg/dL (8.4-10.2); Carbon Dioxide 26 mmol/L (22-32); Chloride 107 mmol/L (98-107); Estimated Glomerular Filt Rate 50 mL/min (>60); Globulin 2.9 g/dL (1.7-4.1); Glucose 96 mg/dL (80-110); HEMOLYSIS < 15 (0-50); Potassium 4.6 mmol/L (3.4-5.1); Sodium 138 mmol/L (137-145); Total Protein 7.2 g/dL (6.3-8.2)
[2024-03-16 12:34] LABS: Creatinine Urine Random 128.54 mg/dL
[2024-03-16 12:39] LABS: Microalbumin Urine Random 0.7 mg/dL (0-1.6)
[2024-03-16 15:27] LABS: Appearance Urine UA CLEAR; Bilirubin Urine UA NEGATIVE (NEGATIVE); Color Urine UA YELLOW; Glucose Urine UA NEGATIVE (Negative); Ketones Urine UA NEGATIVE (NEGATIVE); Leukocyte Esterase Urine UA TRACE (NEGATIVE); Nitrite Urine UA NEGATIVE (Negative); Occult Blood Urine UA NEGATIVE (Negative); Protein Urine UA NEGATIVE (Negative); Specific Gravity Urine UA 1.025 (1.000-1.035); Urobilinogen Urine UA 0.2 E.U./dL (0.2)
[2024-03-16 16:23] LABS: pH Urine UA 5.5 (4.5-8.0)
[2024-03-16 16:28] LABS: Bacteria Urine Occasional (0-1); Culture Indicated Urine Cult Not Indicated; RBC Urine 0-1/HPF (0-5/HPF); Squamous Epithelial Cell Urine 0-1 /HPF (0-5/HPF); Urine Volume Low Vol <10mL (spun); WBC Urine 0-1/HPF (0-5/HPF)
[2024-03-16 18:49] LABS: Hep C Virus Ab w/Reflex Quant NEGATIVE s/c (NEGATIVE)
[2024-03-16 21:16] LABS: Phosphorous 3.5 mg/dL (2.8-4.1)
[2024-03-19 22:11] LABS: HIV-1 RNA by PCR <20 copies/mL (.)
== END ==
LOC: LAB 10:46
PROVIDERS: PCP Physician Assistant; Referring Provider Internal Medicine; Visit Provider Internal Medicine
DX: Z11.59 Encounter for screening for other viral diseases (principal); B20 Human immunodeficiency virus [HIV] disease; N28.9 Disorder of kidney and ureter, unspecified; R74.8 Abnormal levels of other serum enzymes
CPT/HCPCS: 36415; 80053; 81001; 82043; 82570; 84100; 86803; 87536

== ENCOUNTER → 2024-05-17 09:34 | Outpatient (CLI) | payer OTHER, MEDICAID, SELFPAY ==
--- NOTE | 2024-05-17 09:42 | DI.CT.S_ITS ---
PROCEDURE: CT SINUS SCREEN WO CON INDICATIONS: CHRONIC PANSINUSITIS TECHNIQUE: Noncontrast 3.0 mm axial images acquired from the frontal sinuses to the mid-sella, with coronal and sagittal reformats. For radiation dose reduction, the following was used: automated exposure control, adjustment of mA and/or kV according to patient size. COMPARISON: None. FINDINGS: Image quality: Excellent. Maxillary Sinuses: No bony remodeling or destruction. Sinuses are clear. Ethmoid Air Cells: No bony remodeling or destruction. Sinuses are clear. Sphenoid Sinuses: No bony remodeling or destruction. Sinuses are clear. Frontal Sinuses: No bony remodeling or destruction. Sinuses are clear. Ostiomeatal Complexes: Ostiomeatal complexes are patent, yet they are constitutionally narrowed. There is a partial Nito cell seen on the right Miscellaneous: Visualized intra-orbital contents are normal. No bette bullosa or paradoxical turbinate curvature. There is mild leftward nasal septal deviation. Abnormally elongated styloid processes are seen, particularly on the right-side. IMPRESSION: No significant active paranasal sinus disease is seen. Constitutionally narrowed ostiomeatal complexes. Incidental note made of Bladen syndrome, with abnormally elongated styloid processes, particularly on the right. Dictated by: Jorge Cardoso M.D. on 05/17/2024 at 9:33 Approved by: Jorge Cardoso M.D. on 05/17/2024 at 9:35
== END ==
LOC: CT 09:34
PROVIDERS: PCP Physician Assistant; Referring Provider Otolaryngology; Visit Provider Otolaryngology
DX: J01.81 Other acute recurrent sinusitis (principal); J32.4 Chronic pansinusitis
CPT/HCPCS: 70486

== ENCOUNTER → 2024-06-27 13:13 | Outpatient (CLI) | payer OTHER, MEDICAID, SELFPAY ==
[2024-06-27 19:37] LABS: Add Manual Diff / Slide Review NO; Basophils Absolute Auto 0 /uL (0-100); Basophils Percent Auto 0.7 % (0-2); Eosinophils Absolute Auto 0 /uL (0-450); Hematocrit 45.8 % (36-46); Hemoglobin 15.7 g/dL (12.0-16.0); Lymphocytes Absolute Auto 1400 /uL (1100-4500); Lymphocytes Percent Auto 30.4 % (25-40); Mean Corpuscular HGB Conc 34.3 % (30-36); Mean Corpuscular Hemoglobin 34.2 PG (26-34); Mean Corpuscular Volume 99.7 fL (80-100); Monocytes Absolute Auto 300 /uL (0-900); Monocytes Percent Auto 7.5 % (3-14); Neutrophils Absolute Auto 2700 /uL (1500-7000); Neutrophils Percent Auto 60.4 % (50-75); Platelet Count 248 X10^3/uL (150-400); Red Blood Cell Count 4.59 X10^6/uL (4.0-5.2); Red Cell Distribution Width 12.2 % (11.6-14.8); White Blood Cell Count 4.6 X10^3/uL (4.5-11.0)
[2024-06-27 19:54] LABS: Alanine Aminotransferase 52 IU/L (<35); Albumin 4.1 g/dL (3.5-5.0); Albumin Globulin Ratio 1.4 (1.0-2.8); Alkaline Phosphatase 102 U/L (38-126); Aspartate Aminotransferase 40 IU/L (14-36); BUN Creatinine Ratio 13.2 (6-22); Bilirubin Total 0.8 mg/dL (0.2-1.3); Blood Urea Nitrogen 19 mg/dL (7-17); Calcium 9.6 mg/dL (8.4-10.2); Carbon Dioxide 25 mmol/L (22-32); Chloride 105 mmol/L (98-107); Estimated Glomerular Filt Rate 41 mL/min (>60); Glucose 93 mg/dL (80-110); HEMOLYSIS 26 (0-50); Potassium 4.5 mmol/L (3.4-5.1); Sodium 137 mmol/L (137-145); Total Protein 7.1 g/dL (6.3-8.2)
== END ==
PROVIDERS: PCP Physician Assistant; Visit Provider Physician Assistant
DX: R74.8 Abnormal levels of other serum enzymes (principal); N28.9 Disorder of kidney and ureter, unspecified; Z79.899 Other long term (current) drug therapy
CPT/HCPCS: 80053; 85025

== ENCOUNTER → 2024-07-31 08:41 | Outpatient (CLI) | payer OTHER, MEDICAID, SELFPAY ==
[2024-07-03 20:37] LABS: Fecal Immunochemical Test Negative (Negative)
== END ==
PROVIDERS: PCP Physician Assistant; Referring Provider Physician Assistant; Visit Provider Physician Assistant
DX: Z12.11 Encounter for screening for malignant neoplasm of colon (principal)
CPT/HCPCS: 82274

== ENCOUNTER → 2024-10-06 08:57 | Outpatient (CLI) | payer OTHER, SELFPAY ==
[2024-10-06 09:26] LABS: Add Manual Diff / Slide Review NO; Basophils Absolute Auto 0 /uL (0-100); Basophils Percent Auto 0.6 % (0-2); Eosinophils Absolute Auto 200 /uL (0-450); Eosinophils Percent Auto 5.5 % (2-4); Hemoglobin 15.2 g/dL (12.0-16.0); Lymphocytes Absolute Auto 1600 /uL (1100-4500); Lymphocytes Percent Auto 36.4 % (25-40); Mean Corpuscular HGB Conc 34.5 % (30-36); Mean Corpuscular Hemoglobin 34.3 PG (26-34); Mean Corpuscular Volume 99.3 fL (80-100); Monocytes Absolute Auto 400 /uL (0-900); Monocytes Percent Auto 8.1 % (3-14); Neutrophils Absolute Auto 2200 /uL (1500-7000); Neutrophils Percent Auto 49.4 % (50-75); Platelet Count 233 X10^3/uL (150-400); Red Blood Cell Count 4.43 X10^6/uL (4.0-5.2); Red Cell Distribution Width 12.3 % (11.6-14.8); White Blood Cell Count 4.5 X10^3/uL (4.5-11.0)
[2024-10-06 10:05] LABS: Appearance Urine UA CLEAR; Bilirubin Urine UA NEGATIVE (NEGATIVE); Color Urine UA YELLOW; Glucose Urine UA NEGATIVE (Negative); Ketones Urine UA NEGATIVE (NEGATIVE); Leukocyte Esterase Urine UA NEGATIVE (NEGATIVE); Nitrite Urine UA NEGATIVE (Negative); Occult Blood Urine UA NEGATIVE (Negative); Protein Urine UA NEGATIVE (Negative); Urobilinogen Urine UA 0.2 E.U./dL (0.2)
[2024-10-06 10:07] LABS: Alanine Aminotransferase 54 IU/L (<35); Albumin 4.3 g/dL (3.5-5.0); Albumin Globulin Ratio 1.7 (1.0-2.8); Alkaline Phosphatase 93 U/L (38-126); Aspartate Aminotransferase 40 IU/L (14-36); Bilirubin Total 0.7 mg/dL (0.2-1.3); Calcium 9.5 mg/dL (8.4-10.2); Carbon Dioxide 25 mmol/L (22-32); Chloride 107 mmol/L (98-107); Cholesterol 166 mg/dL (140-199); Globulin 2.5 g/dL (1.7-4.1); Glucose 104 mg/dL (80-110); HDL Cholesterol 35 mg/dL (40-60); HEMOLYSIS < 15 (0-50); LDL Cholesterol Calculated 95 mg/dL (<100); Phosphorous 3.1 mg/dL (2.8-4.1); Potassium 4.2 mmol/L (3.4-5.1); Sodium 138 mmol/L (137-145); Total Protein 6.8 g/dL (6.3-8.2); Triglycerides 179 mg/dL (35-150)
[2024-10-06 10:24] LABS: BUN Creatinine Ratio 14.4 (6-22); Blood Urea Nitrogen 19 mg/dL (7-17); Estimated Glomerular Filt Rate 46 mL/min (>60)
[2024-10-06 10:39] LABS: Bacteria Urine Occasional (0-1); Culture Indicated Urine Cult Not Indicated; RBC Urine 0-1/HPF (0-5/HPF); Squamous Epithelial Cell Urine 0-1 /HPF (0-5/HPF); Urine Volume 10mL (spun); WBC Urine 0-1/HPF (0-5/HPF); pH Urine UA 6.5 (4.5-8.0)
== END ==
PROVIDERS: PCP Physician Assistant; Referring Provider Internal Medicine Infectious Disease; Visit Provider Internal Medicine Infectious Disease
DX: Z21 Asymptomatic human immunodeficiency virus [HIV] infection status (principal)
CPT/HCPCS: 36415; 80053; 80061; 81001; 84100; 85025; 86361; 87536

== ENCOUNTER → 2024-10-31 14:39 | Outpatient (CLI) | payer OTHER, SELFPAY ==
[2024-10-31 18:41] LABS: Alanine Aminotransferase 53 IU/L (<35); Albumin 4.2 g/dL (3.5-5.0); Albumin Globulin Ratio 1.4 (1.0-2.8); Alkaline Phosphatase 88 U/L (38-126); Aspartate Aminotransferase 78 IU/L (14-36); BUN Creatinine Ratio 10.5 (6-22); Bilirubin Total 0.5 mg/dL (0.2-1.3); Blood Urea Nitrogen 17 mg/dL (7-17); Calcium 9.1 mg/dL (8.4-10.2); Carbon Dioxide 28 mmol/L (22-32); Chloride 105 mmol/L (98-107); Estimated Glomerular Filt Rate 36 mL/min (>60); Glucose 109 mg/dL (80-110); HEMOLYSIS 25 (0-50); Sodium 138 mmol/L (137-145); Total Protein 7.2 g/dL (6.3-8.2)
[2024-10-31 18:59] LABS: Creatinine Urine Random 118.46 mg/dL; Protein (Total) Urine Random 5 mg/dL (0-12); Protein Creatinine Ratio Urine 0.04 GRAM/24H
[2024-10-31 19:07] LABS: Hematocrit 48.3 % (36-46); Hemoglobin 16.6 g/dL (12.0-16.0)
== END ==
PROVIDERS: Student in an Organized Health Care Education/Training Program; PCP Physician Assistant; Visit Provider Physician Assistant
DX: N28.9 Disorder of kidney and ureter, unspecified (principal); Z79.899 Other long term (current) drug therapy; N05.9 Unspecified nephritic syndrome with unspecified morphologic changes; D70.9 Neutropenia, unspecified; D63.1 Anemia in chronic kidney disease; R80.9 Proteinuria, unspecified
CPT/HCPCS: 80053; 82570; 84156; 85014; 85018

== ENCOUNTER → 2024-11-27 09:42 | Outpatient (CLI) | payer OTHER, SELFPAY ==
--- NOTE | 2024-11-27 09:45 | DI.US.S_ITS ---
PROCEDURE: US RENAL COMPLETE INDICATIONS: STAGE 3B CHRONIC KIDNEY DISEASE TECHNIQUE: Real-time scanning was performed of the kidneys and bladder, with image documentation. COMPARISON: None. FINDINGS: Kidneys: Kidneys are mildly small in size. Right kidney measures 8.9 cm long; left kidney measures 8.4 cm long. Right renal cortical thickness is 1.2 cm; left renal cortical thickness is 1.2 cm. Renal cortical echotexture is normal. No hydronephrosis or nephrolithiasis. No suspicious solid mass lesions. Bladder: Pre-void bladder volume is 337 mL. Post-void residual is 0 mL. Pre-void images demonstrate no intraluminal masses or stones. On pre-void images, left ureteral jets are noted with color Doppler interrogation. (Of note, ureteral jets may not be detectable in up to 25% of cases due to insufficient differences in specific gravity between ureteral and bladder urine). Miscellaneous: No free pelvic fluid. IMPRESSION: Kidneys are mildly small, otherwise normal in appearance. No hydronephrosis. Dictated by: Michael Schmidt M.D. on 11/27/2024 at 16:52 Approved by: Michael Schmidt M.D. on 11/27/2024 at 16:53
[2024-11-27 10:18] LABS: Hematocrit 44.8 % (36-46); Hemoglobin 15.6 g/dL (12.0-16.0)
[2024-11-27 10:46] LABS: BUN Creatinine Ratio 13.4 (6-22); Blood Urea Nitrogen 17 mg/dL (7-17); Calcium 9.2 mg/dL (8.4-10.2); Carbon Dioxide 25 mmol/L (22-32); Chloride 103 mmol/L (98-107); Estimated Glomerular Filt Rate 48 mL/min (>60); Glucose 90 mg/dL (80-110); HEMOLYSIS < 15 (0-50); Potassium 4.2 mmol/L (3.4-5.1); Sodium 137 mmol/L (137-145)
[2024-11-27 10:48] LABS: Appearance Urine UA CLEAR; Bilirubin Urine UA NEGATIVE (NEGATIVE); Color Urine UA YELLOW; Glucose Urine UA NEGATIVE (Negative); Ketones Urine UA NEGATIVE (NEGATIVE); Leukocyte Esterase Urine UA NEGATIVE (NEGATIVE); Nitrite Urine UA NEGATIVE (Negative); Occult Blood Urine UA TRACE-INTACT (Negative); Protein Urine UA NEGATIVE (Negative); Urobilinogen Urine UA 0.2 E.U./dL (0.2)
[2024-11-27 10:49] LABS: Urine Volume 10mL (spun); pH Urine UA 5.5 (4.5-8.0)
[2024-11-27 10:51] LABS: Bacteria Urine None Seen; Culture Indicated Urine Cult Not Indicated; RBC Urine None Seen (0-5/HPF); Squamous Epithelial Cell Urine None Seen (0-5/HPF); WBC Urine None Seen (0-5/HPF)
[2024-11-27 11:08] LABS: Creatinine Urine Random 42.94 mg/dL; Protein (Total) Urine Random 13 mg/dL (0-12)
[2024-11-28 07:09] LABS: Parathyroid Hormone Int 38 pg/mL (15-65)
== END ==
PROVIDERS: PCP Physician Assistant; Referring Provider Student in an Organized Health Care Education/Training Program; Visit Provider Student in an Organized Health Care Education/Training Program
DX: N18.32 Chronic kidney disease, stage 3b (principal); D63.1 Anemia in chronic kidney disease; N30.00 Acute cystitis without hematuria; N25.81 Secondary hyperparathyroidism of renal origin; R80.9 Proteinuria, unspecified; D70.9 Neutropenia, unspecified; E83.30 Disorder of phosphorus metabolism, unspecified; N05.9 Unspecified nephritic syndrome with unspecified morphologic changes
CPT/HCPCS: 36415; 76770; 80048; 81001; 82570; 83970; 84100; 84156; 85014; 85018

== ENCOUNTER → 2025-02-22 08:51 | Outpatient (CLI) | payer OTHER, SELFPAY ==
[2025-02-22 10:11] LABS: Appearance Urine UA CLEAR; Bilirubin Urine UA NEGATIVE (NEGATIVE); Color Urine UA YELLOW; Glucose Urine UA NEGATIVE (Negative); Ketones Urine UA NEGATIVE (NEGATIVE); Leukocyte Esterase Urine UA NEGATIVE (NEGATIVE); Nitrite Urine UA NEGATIVE (Negative); Occult Blood Urine UA NEGATIVE (Negative); Protein Urine UA NEGATIVE (Negative); Specific Gravity Urine UA 1.015 (1.000-1.035); Urine Volume 10mL (spun); Urobilinogen Urine UA 0.2 E.U./dL (0.2)
[2025-02-22 10:12] LABS: Bacteria Urine None Seen; Culture Indicated Urine Cult Not Indicated; RBC Urine None Seen (0-5/HPF); Squamous Epithelial Cell Urine None Seen (0-5/HPF); WBC Urine None Seen (0-5/HPF)
[2025-02-22 10:24] LABS: Alanine Aminotransferase 50 IU/L (<35); Albumin 4.4 g/dL (3.5-5.0); Albumin Globulin Ratio 1.6 (1.0-2.8); Alkaline Phosphatase 84 U/L (38-126); Aspartate Aminotransferase 41 IU/L (14-36); BUN Creatinine Ratio 13.1 (6-22); Bilirubin Total 0.8 mg/dL (0.2-1.3); Blood Urea Nitrogen 18 mg/dL (7-17); Calcium 9.3 mg/dL (8.4-10.2); Carbon Dioxide 28 mmol/L (22-32); Chloride 103 mmol/L (98-107); Estimated Glomerular Filt Rate 44 mL/min (>60); Globulin 2.8 g/dL (1.7-4.1); Glucose 98 mg/dL (70-99); HEMOLYSIS < 15 (0-50); Phosphorous 3.1 mg/dL (2.8-4.1); Potassium 4.4 mmol/L (3.4-5.1); Sodium 139 mmol/L (137-145); Total Protein 7.2 g/dL (6.3-8.2)
[2025-02-28 19:07] LABS: HIV-1 RNA by PCR <20 copies/mL (.)
== END ==
PROVIDERS: PCP Physician Assistant; Referring Provider Internal Medicine Infectious Disease; Visit Provider Internal Medicine Infectious Disease
DX: B20 Human immunodeficiency virus [HIV] disease (principal)
CPT/HCPCS: 36415; 80053; 81001; 84100; 87536

== ENCOUNTER → 2025-04-23 10:56 | Outpatient (CLI) | payer OTHER, SELFPAY ==
[2025-04-23 19:10] LABS: Alanine Aminotransferase 83 IU/L (<35); Albumin 4.3 g/dL (3.5-5.0); Albumin Globulin Ratio 1.6 (1.0-2.8); Alkaline Phosphatase 82 U/L (38-126); Blood Urea Nitrogen 17 mg/dL (7-17); Calcium 9.2 mg/dL (8.4-10.2); Carbon Dioxide 28 mmol/L (22-32); Chloride 103 mmol/L (98-107); Estimated Glomerular Filt Rate 44 mL/min (>60); Globulin 2.7 g/dL (1.7-4.1); Glucose 94 mg/dL (70-99); HEMOLYSIS 18 (0-50); Potassium 4.2 mmol/L (3.4-5.1); Sodium 139 mmol/L (137-145); Total Protein 7.0 g/dL (6.3-8.2)
[2025-04-23 19:28] LABS: Free T4, Direct Thyroxine 1.31 ng/dL (0.78-2.19)
[2025-04-23 19:42] LABS: Thyroid Stimulating Hormone 0.850 uIU/mL (0.47-4.68)
[2025-04-25 10:36] LABS: Rubeola Measles IgG 64.6 AU/mL (Immune >16.4)
[2025-05-06 03:39] LABS: Percent Free Testosterone 3.21 % (0.50-2.80)
== END ==
PROVIDERS: PCP Physician Assistant; Visit Provider Nurse Practitioner Adult Health
DX: Z11.51 Encounter for screening for human papillomavirus (HPV) (principal); L68.0 Hirsutism; E04.1 Nontoxic single thyroid nodule; R74.8 Abnormal levels of other serum enzymes; N18.30 Chronic kidney disease, stage 3 unspecified; Z78.9 Other specified health status
CPT/HCPCS: 80053; 82627; 84402; 84403; 84439; 84443; 86658; 86735; 86762; 86765

== ENCOUNTER → 2025-04-25 11:23 | Outpatient (CLI) | payer OTHER, SELFPAY ==
--- NOTE | 2025-04-25 12:22 | DI.US.S_ITS ---
PROCEDURE: US THYROID INDICATIONS: RIGHT THYROID NODULE. HISTORY OF THYROIDITIS. TECHNIQUE: Real-time scanning was performed of the thyroid gland, with image documentation. COMPARISON: None. FINDINGS: Thyroid: Right lobe measures 4.9 x 2.7 x 1.7 cm. Left lobe measures 4.9 x 1.7 x 1.3 cm. Isthmus is 0.3 cm thick. Echotexture is homogeneous. Nodule number: 1 Location: Right thyroid Size: 2.6 x 1.7 x 1.5 cm Composition: Solid Echogenicity: Hypoechoic Shape: wider than tall. Margins: Smooth Echogenic foci: None Total points: 4 ACR TI-RADS category: 4 IMPRESSION: Single right thyroid nodule. Recommend ultrasound-guided fine needle aspiration for further evaluation based on guidelines provided below. ACR TI-RADS definitions and recommendations: TI-RADS 1 (benign): 0 points. FNA not needed. TI-RADS 2 (not suspicious): 2 points. FNA not needed. TI-RADS 3: 3 points. * FNA if 2.5 cm or larger, follow up if 1.5 cm or larger (at 1, 3, and 5 years). TI-RADS 4: 4-6 points. * FNA if 1.5 cm or larger, follow up if 1 cm or larger (at 1, 2, 3, and 5 years). TI-RADS 5: 7 points or more. * FNA if 1 cm or larger, follow up if 0.5 cm or larger (every year for 5 years). Approved by: Ashkan Cooper M.D. on 04/26/2025 at 13:56
--- NOTE | 2025-04-25 12:32 | DI.RAD.S_ITS ---
PROCEDURE: XR DEXA AXIAL SKELETON INDICATIONS: bone density screening COMPARISON: None. FINDINGS: Lumbar Spine: Bone mineral density 0.725 g/cm2, T score -2.9, osteoporosis. Left Femoral Neck: Bone mineral density 0.535 g/cm2, T score -2.8. Left Hip: Bone mineral density 0.721 g/cm2, T score -1.8, osteopenia. Fracture Risk Calculation (when applicable): Not reported due to osteoporosis diagnosis. (T score greater or equal to -1.0 to: NORMAL) (T score from -1.1 to -2.4: OSTEOPENIA) (T score less than or equal to -2.5: OSTEOPOROSIS) IMPRESSION: Osteoporosis. Follow-up guidelines as follows: Osteoporosis: Consider a repeat DEXA and Vertebral Fracture Assessment (VFA) exam in 2 years or sooner if medically necessary, to reassess this patient's status. Osteopenia: Consider a repeat DEXA in 2-3 years to reassess this patient's status, or if there is a new clinical indication. Normal: Consider a repeat DEXA in 5 years or sooner, or if there is a new clinical indication. All treatment decisions require clinical judgment and consideration of individual patient factors, including patient preferences, comorbidities, previous drug use, risk factors not captured in the FRAX model (e.g., frailty, falls, vitamin D deficiency, increased bone turnover, interval significant decline in bone density ) and possible under- or over-estimation of fracture risk by FRAX. In addition, the NOF Guide recommends that FDA-approved medical therapies be considered in postmenopausal women and men age >= 50 years with a: * Hip or vertebral (clinical or morphometric) fracture * T-score of <=-2.5 at the spine or hip * Ten-year fracture probability by FRAX of >= 3% for hip fracture or >=20% for major osteoporotic fracture. Dictated by: Brian Jones M.D. on 04/25/2025 at 15:10 Approved by: Brian Jones M.D. on 04/25/2025 at 15:11
== END ==
PROVIDERS: PCP Physician Assistant; Referring Provider Nurse Practitioner Adult Health; Visit Provider Nurse Practitioner Adult Health
DX: E04.1 Nontoxic single thyroid nodule (principal); Z78.0 Asymptomatic menopausal state; M81.0 Age-related osteoporosis without current pathological fracture
CPT/HCPCS: 76536; 77080

== ENCOUNTER → 2025-05-31 13:31 | Outpatient (CLI) | payer OTHER, SELFPAY ==
[2025-05-31 19:51] LABS: Add Manual Diff / Slide Review NO; Hematocrit 42.6 % (36-46); Hemoglobin 15.1 g/dL (12.0-16.0); Lymphocytes Absolute Auto 1500 /uL (1100-4500); Mean Corpuscular HGB Conc 35.4 % (30-36); Mean Corpuscular Hemoglobin 35.1 PG (26-34); Mean Corpuscular Volume 99.1 fL (80-100); Platelet Count 226 X10^3/uL (150-400)
[2025-05-31 20:04] LABS: Alanine Aminotransferase 29 IU/L (<35); Albumin 4.1 g/dL (3.5-5.0); Albumin Globulin Ratio 1.7 (1.0-2.8); Alkaline Phosphatase 87 U/L (38-126); Blood Urea Nitrogen 22 mg/dL (7-17); Calcium 9.1 mg/dL (8.4-10.2); Carbon Dioxide 25 mmol/L (22-32); Chloride 104 mmol/L (98-107); Estimated Glomerular Filt Rate 47 mL/min (>60); Globulin 2.4 g/dL (1.7-4.1); Glucose 78 mg/dL (70-99); HEMOLYSIS 17 (0-50); Potassium 4.0 mmol/L (3.4-5.1); Sodium 137 mmol/L (137-145); Total Protein 6.5 g/dL (6.3-8.2)
[2025-05-31 20:22] LABS: Free T3, Triiodothyronine Free 4.63 pg/mL (2.77-5.27)
[2025-05-31 20:36] LABS: TSH w/ Reflex to FT4 0.56 uIU/mL (0.47-4.68)
== END ==
PROVIDERS: PCP Physician Assistant; Visit Provider Physician Assistant
DX: R10.13 Epigastric pain (principal); R74.8 Abnormal levels of other serum enzymes; E04.1 Nontoxic single thyroid nodule
CPT/HCPCS: 80053; 84443; 84481; 85025

== ENCOUNTER → 2025-06-05 14:14 | Outpatient (CLI) | payer OTHER, SELFPAY ==
--- NOTE | 2025-06-05 14:15 | DI.MG.S_ITS ---
MM screening mammo BI: 06/05/2025. BI-RADS: 1 CLINICAL: 60-year old female for bilateral screening mammogram. Tyrer-Cuzick lifetime risk of 2.5%. No personal or first-degree family history of breast cancer. PRIOR EXAMS 09/14/2018, 07/28/2017, 07/20/2016. MAMMOGRAPHY TECHNIQUE: 2D and 3D (tomosynthesis) digital mammographic views obtained, with additional images as needed for full coverage. Current study was also evaluated with a Computer Aided Detection (CAD) system. DENSITY A. The breasts are almost entirely fatty. MAMMOGRAPHY FINDINGS Bilateral: No suspicious mass, asymmetry, microcalcification, or other abnormality seen. IMPRESSION: * No evidence of malignancy. RECOMMENDATIONS Bilateral * Annual screening mammography. OVERALL ASSESSMENT CATEGORY BI-RADS-1: Negative. The [employer] recommends annual screening mammography beginning at age 40 for women with average risk of breast cancer. ELECTRONICALLY SIGNED: Mukesh Biggs M.D. on 06/05/2025 at 10:03:41 PM PT Interpreting Station ID: [id number]
== END ==
LOC: MAMMO 14:14
PROVIDERS: PCP Physician Assistant; Referring Provider Physician Assistant; Visit Provider Physician Assistant
DX: Z12.31 Encounter for screening mammogram for malignant neoplasm of breast (principal); R92.313 Mammographic fatty tissue density, bilateral breasts
CPT/HCPCS: 77063; 77067

== ENCOUNTER → 2025-07-02 12:00 | Outpatient (CLI) | payer OTHER, SELFPAY ==
[2025-07-02 13:27] LABS: Appearance Urine UA CLEAR; Bilirubin Urine UA NEGATIVE (NEGATIVE); Color Urine UA YELLOW; Glucose Urine UA NEGATIVE (Negative); Ketones Urine UA NEGATIVE (NEGATIVE); Leukocyte Esterase Urine UA NEGATIVE (NEGATIVE); Nitrite Urine UA NEGATIVE (Negative); Occult Blood Urine UA NEGATIVE (Negative); Protein Urine UA NEGATIVE (Negative); Specific Gravity Urine UA 1.020 (1.000-1.035); Urobilinogen Urine UA 1.0 E.U./dL (0.2)
[2025-07-02 13:28] LABS: pH Urine UA 5.5 (4.5-8.0)
[2025-07-02 13:30] LABS: Culture Indicated Urine Cult Not Indicated
[2025-07-02 14:02] LABS: Protein (Total) Urine Random 6 mg/dL (0-12); Protein Creatinine Ratio Urine 0.04 GRAM/24H
[2025-07-02 14:05] LABS: Blood Urea Nitrogen 24 mg/dL (7-17); Calcium 10.3 mg/dL (8.4-10.2); Carbon Dioxide 26 mmol/L (22-32); Chloride 100 mmol/L (98-107); Estimated Glomerular Filt Rate 45 mL/min (>60); Glucose 88 mg/dL (70-99); HEMOLYSIS < 15 (0-50); Potassium 4.2 mmol/L (3.4-5.1); Sodium 136 mmol/L (137-145)
== END ==
PROVIDERS: PCP Physician Assistant; Referring Provider Student in an Organized Health Care Education/Training Program; Visit Provider Student in an Organized Health Care Education/Training Program
DX: D70.9 Neutropenia, unspecified (principal); N05.9 Unspecified nephritic syndrome with unspecified morphologic changes; N25.81 Secondary hyperparathyroidism of renal origin; D63.1 Anemia in chronic kidney disease; N30.00 Acute cystitis without hematuria; R80.9 Proteinuria, unspecified
CPT/HCPCS: 36415; 80048; 81001; 82570; 83970; 84156

== ENCOUNTER → 2025-09-13 10:33 | Outpatient (CLI) | payer OTHER, SELFPAY ==
[2025-09-13 11:14] LABS: Appearance Urine UA CLEAR; Bilirubin Urine UA NEGATIVE (NEGATIVE); Color Urine UA YELLOW; Glucose Urine UA NEGATIVE (Negative); Ketones Urine UA NEGATIVE (NEGATIVE); Leukocyte Esterase Urine UA NEGATIVE (NEGATIVE); Nitrite Urine UA NEGATIVE (Negative); Occult Blood Urine UA NEGATIVE (Negative); Protein Urine UA NEGATIVE (Negative); Specific Gravity Urine UA 1.015 (1.000-1.035); Urobilinogen Urine UA 0.2 E.U./dL (0.2)
[2025-09-13 11:15] LABS: pH Urine UA 6.5 (4.5-8.0)
[2025-09-13 11:24] LABS: Culture Indicated Urine Cult Not Indicated
[2025-09-13 11:27] LABS: Add Manual Diff / Slide Review NO; Hematocrit 43.5 % (36-46); Hemoglobin 15.2 g/dL (12.0-16.0); Lymphocytes Absolute Auto 1200 /uL (1100-4500); Mean Corpuscular HGB Conc 34.9 % (30-36); Mean Corpuscular Hemoglobin 34.7 PG (26-34); Mean Corpuscular Volume 99.4 fL (80-100); Platelet Count 212 X10^3/uL (150-400)
[2025-09-13 13:12] LABS: Alanine Aminotransferase 67 IU/L (<35); Albumin 4.3 g/dL (3.5-5.0); Albumin Globulin Ratio 1.7 (1.0-2.8); Alkaline Phosphatase 80 U/L (38-126); Blood Urea Nitrogen 16 mg/dL (7-17); Calcium 9.1 mg/dL (8.4-10.2); Carbon Dioxide 28 mmol/L (22-32); Chloride 106 mmol/L (98-107); Cholesterol 164 mg/dL (140-199); Estimated Glomerular Filt Rate 51 mL/min (>60); Globulin 2.6 g/dL (1.7-4.1); Glucose 96 mg/dL (70-99); HDL Cholesterol 44 mg/dL (40-60); HEMOLYSIS < 15 (0-50); Phosphorous 3.3 mg/dL (2.8-4.1); Potassium 4.0 mmol/L (3.4-5.1); Sodium 141 mmol/L (137-145); Total Protein 6.9 g/dL (6.3-8.2); Triglycerides 206 mg/dL (35-150)
[2025-09-14 13:12] LABS: Hemacrit 44.2 % (34.0-46.6); Hemoglobin 15.1 g/dL (11.1-15.9); Lymphocytes (Absolute) 1.3 x10E3/uL (0.7-3.1); MCHC 34.2 g/dL (31.5-35.7); MCHC 34.3 pg (26.6-33.0); MCV 101 fL (79-97); Percent CD 4 Pos Lymph 39.7 % (30.8-58.5); RDW 12.1 % (11.7-15.4)
== END ==
PROVIDERS: PCP Physician Assistant; Referring Provider Internal Medicine Infectious Disease; Visit Provider Internal Medicine Infectious Disease
DX: B20 Human immunodeficiency virus [HIV] disease (principal)
CPT/HCPCS: 36415; 80053; 80061; 81001; 84100; 85025; 86361; 87536